=== PATIENT | male | born 1935 | race Caucasian/White ===

== ENCOUNTER → 2016-09-18 | Outpatient (CLI) | payer MEDICARE ==
--- NOTE | 2016-09-20 15:39 | PE ---
Nuclear medicine PET/CT HISTORY: Breast carcinoma, metastatic pleural effusion Patient received 14.7 mCi F-18 FDG intravenously. Delayed scanning performed from the skull base to t he mid thighs. Localization and attenuation correction CT scan was performed. Correlation to prior nuclear medicine PET/CT 22 May 2016. Neck and chest: There is pleural thickening throughout the right hemithorax, corresponding hypermetab olic uptake is present, SUV approximately 3. There is bandlike area of soft tissue density at the rig ht lung base which extends along the right hemidiaphragm anteriorly, SUV 3.5-4.7. The amount of pleur al fluid is reduced as compared to prior exam. Air bronchograms present, volume loss present in the r ight hemithorax. There are again noted coronary artery calcifications. Left lung shows a parenchymal band compatible w ith scarring posteriorly at the lung base. Retrocaval pretracheal lymph node shows SUV 2.6 and is not enlarged by CT size criteria. Abdomen pelvis: No evidence for adrenal mass or retroperitoneal adenopathy. Prostate is enlarged. Uri nary bladder wall thickening likely due to chronic outlet obstruction. Left inguinal hernia contains fat. Extensive diverticular change in the sigmoid colon. Focus within the sigmoid colon shows hyperme tabolic uptake, SUV 6, difficult to exclude an underlying mucosal lesion. IMPRESSION: There is improvement in the right pleural effusion. Uniform pleural thickening with mild increased hypermetabolic uptake is present as described. Sigmoid colon again shows focus of hypermeta bolic uptake.
== END | disposition home or self-care (01) ==
LOC: RADPETMAIN 10:08
PROVIDERS: ATTEND Internal Medicine Hematology & Oncology
DX: C50.929 Malignant neoplasm of unspecified site of unspecified male breast (principal); J90 Pleural effusion, not elsewhere classified; J92.9 Pleural plaque without asbestos
CPT/HCPCS: 78815; A9552

== ENCOUNTER 2016-10-02 02:04 | Inpatient (IN) | payer MEDICARE ==
[2016-10-02] MEDS ORDERED: ALBUTEROL NEBULIZED 2.5 MG/3 ML INHALATION STA (02:31)
[2016-10-02] MEDS ORDERED: IPRATROPIUM 0.5 MG/2.5 ML NEBU INHALATION STA (02:31)
[2016-10-02] MEDS ORDERED: SODIUM CHLORIDE 0.9% 1,000 ML IV STA (02:31)
[2016-10-02] MEDS ORDERED: IBUPROFEN 800 MG TAB PO STA (02:32)
[2016-10-02] MEDS ORDERED: ACETAMINOPHEN TAB 500 MG TAB PO STA (02:32)
--- NOTE | 2016-10-02 02:33 | ED ---
General Adult HPI - General Chief complaint: Chest Pain Stated complaint: CHEST PAIN,SOB Time Seen by Provider: 10/02/16 02:26 Source: patient, family, RN notes reviewed, old records reviewed Mode of arrival: wheelchair Limitations: no limitations - History of Present Illness Initial comments: This is a 81-year-old male here for evaluation significant shortness of breath. Patient has K respiratory lung history including lung CA asthma and heart issues. Patient states that and left-sided chest pain with significant shortness of breath. He is also having fevers, with cough and congestion. Patient has no significant recent hospital admission. - Related Data Home Medications Medication Instructions Recorded Confirmed Letrozole [Femara] 2.5 mg PO DAILY 10/02/16 10/02/16 Morphine Sulfate ER [Ms Contin 30 mg PO Q12HR 10/02/16 10/02/16 30Mg] Allergies Allergy/AdvReac Type Severity Reaction Status Date / Time No Known Allergies Allergy Verified 06/04/16 06:28 Review of Systems ROS Statement: Those systems with pertinent positive or pertinent negative responses have been documented in the HPI. ROS Other: All systems not noted in ROS Statement are negative. Past Medical History Past Medical History: Asthma, Cancer, GERD/Reflux, Hyperlipidemia, Osteoarthritis (OA), Pneumonia, Prostate Disorder Additional Past Medical History / Comment(s): LEFT BREAST CA with surgery and chemotherapy, arrhythmia, kidney stones, BPH, nreve problem in feet. Mesothelioma. History of Any Multi-Drug Resistant Organisms: None Reported Past Surgical History: Adenoidectomy, Breast Surgery, Orthopedic Surgery, Tonsillectomy Additional Past Surgical History / Comment(s): 06/04/16 Right VAT with pleural bx and insertion of pleurx catheter. Other surgical hx: LEFT MASTECTOMY with lymph node excision, LEFT ROTATOR CUFF SX AND FOLLOW UP SX R/T INFECTION. BAUTISTA CATARACTS, colonoscopy with polypectomy. 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 Spouse has dementia. His daughter helps as well. Pt uses no assistive device. He drives. Smoking Status: Former smoker Past Alcohol Use History: Rare Additional Past Alcohol Use History / Comment(s): QUIT SMOKING 25 YRS, FOR 30 YRS, [address] [place]. Past Drug Use History: None Reported - Past Family History Mother Family Medical History: No Reported History Additional Family Medical History / Comment(s): Mother of "old age" at the age of 85yrs. Father Family Medical History: No Reported History Additional Family Medical History / Comment(s): Father lived to be almost 90yrs old. General Exam Limitations: no limitations General appearance: alert, anxious, in distress, cachectic Head exam: Present: atraumatic, normocephalic, normal inspection Eye exam: Present: normal appearance, PERRL, EOMI. Absent: scleral icterus, conjunctival injection, periorbital swelling ENT exam: Present: mucous membranes dry Neck exam: Present: normal inspection. Absent: tenderness, meningismus, lymphadenopathy Respiratory exam: Present: normal lung sounds bilaterally, wheezes, accessory muscle use, decreased breath sounds, prolonged expiratory. Absent: respiratory distress, rales, rhonchi, stridor Cardiovascular Exam: Present: normal rhythm, tachycardia, normal heart sounds. Absent: systolic murmur, diastolic murmur, rubs, gallop, clicks GI/Abdominal exam: Present: soft, normal bowel sounds. Absent: distended, tenderness, guarding, rebound, rigid Extremities exam: Present: normal inspection, full ROM, normal capillary refill. Absent: tenderness, pedal edema, joint swelling, calf tenderness Back exam: Present: normal inspection Neurological exam: Present: alert, oriented X3, CN II-XII intact Psychiatric exam: Present: normal affect, normal mood Skin exam: Present: warm, dry, intact, normal color. Absent: rash Course Vital Signs 10/02/16 10/02/16 10/02/16 02:11 02:47 02:58 Temperature 98.7 F Pulse Rate 109 H 101 H Pulse Rate [ 110 H Right Radial] Respiratory 20 Rate Blood Pressure 129/72 O2 Sat by Pulse 90 L Oximetry 10/02/16 10/02/16 03:17 03:41 Temperature Pulse Rate 98 111 H Pulse Rate [ Right Radial] Respiratory Rate Blood Pressure O2 Sat by Pulse Oximetry - Reevaluation(s) Reevaluation #1: 10/02/16 03:51 Patient symptoms are improved at this point with both fever control and prolonged bradycardia treatment, pain control EKG Findings - EKG Comments: EKG Findings:: EKG shows sinus tachycardia rate 107, pO2 of 6, QRS 72, QTc 413 Medical Decision Making - Medical Decision Making 81 male here for evaluation of shortness of breath cough congestion left-sided pain. Patient with positive new left pleural effusion with pneumonia, right sided pleural effusion continued, patient hypoxic with elevated white count, fever. Patient unit for IV antibiotics and monitoring of hemodynamic status - Lab Data Result diagrams: 10/02/16 02:20 10/02/16 02:20 Lab Results 10/02/16 10/02/16 10/02/16 Range/Units 02:20 02:20 02:20 WBC 23.7 H (3.8-10.6) k/uL RBC 4.35 (4.30-5.90) m/uL Hgb 11.2 L (13.0-17.5) gm/dL Hct 36.2 L (39.0-53.0) % MCV 83.2 (80.0-100.0) fL MCH 25.8 (25.0-35.0) pg MCHC 31.0 (31.0-37.0) g/dL RDW 15.8 H (11.5-15.5) % Plt Count 636 H (150-450) k/uL Neutrophils % 78 % Lymphocytes % 14 % Monocytes % 6 % Eosinophils % 1 % Basophils % 0 % Neutrophils # 18.5 H (1.3-7.7) k/uL Lymphocytes # 3.3 (1.0-4.8) k/uL Monocytes # 1.4 H (0-1.0) k/uL Eosinophils # 0.1 (0-0.7) k/uL Basophils # 0.1 (0-0.2) k/uL Hypochromasia Moderate PT 10.7 (9.0-12.0) sec INR 1.1 (<1.1) APTT 27.9 (22.0-30.0) sec Sodium 136 L (137-145) mmol/L Potassium 4.8 (3.5-5.1) mmol/L Chloride 96 L (98-107) mmol/L Carbon Dioxide 26 (22-30) mmol/L Anion Gap 14 mmol/L BUN 21 H (9-20) mg/dL Creatinine 0.80 (0.66-1.25) mg/dL Est GFR (MDRD) Af Amer >60 (>60 ml/min/1.73 sqM) Est GFR (MDRD) Non-Af >60 (>60 ml/min/1.73 sqM) Glucose 110 H (74-99) mg/dL Calcium 9.3 (8.4-10.2) mg/dL Magnesium 1.8 (1.6-2.3) mg/dL Total Bilirubin 0.5 (0.2-1.3) mg/dL AST 34 (17-59) U/L ALT 36 (21-72) U/L Alkaline Phosphatase 131 H (38-126) U/L Total Protein 6.6 (6.3-8.2) g/dL Albumin 3.2 L (3.5-5.0) g/dL - Radiology Data Radiology results: report reviewed (Chest x-ray is positive for left-sided pneumonia, bilateral pleural effusion), image reviewed Critical Care Time Critical Care Time: Yes Total Critical Care Time: 31 Disposition Clinical Impression: Carcinoma of left male breast, Pleural effusion on right, Nosocomial pneumonia , Fever, Sepsis Disposition: ADMITTED IP TO THIS [facility] Condition: Serious Referrals: Jayson Mendoza MD [Primary Care Provider] - 1-2 days
[2016-10-02] MEDS ORDERED: LEVOFLOXACIN 750MG-D5W PMX 750 MG in DEXTROSE/WATER 1 150ML.BAG IVPB STA (02:43)
[2016-10-02] MEDS ORDERED: PIPERACILLIN-TAZOBACTAM 3.375 GM in DEXTROSE/WATER 1 50ML.BAG IVPB STA (02:43)
--- NOTE | 2016-10-02 02:54 | XR ---
EXAM: Single view of the chest. INDICATION: 81-year-old male with chest pain. COMPARISON: Chest radiograph 08/03/2016. FINDINGS: Single upright AP portable view of the chest shows stable cardiomegaly. Aorta is tortuous and partially calcified. Right-sided pleural effusion with adjacent atelectasis consolidation is again demonstrated. Left costophrenic angle is not well-visualized secondary to enlarged cardiac silhouette, although interval development of a left pleural effusion with adjacent atelectasis is suspected. No acute osseous abnormality. Upper abdomen is unremarkable. IMPRESSION: 1. Stable cardiomegaly. 2. Stable right pleural effusion with adjacent atelectasis or consolidation. 3. Suspect interval development of a small left pleural effusion with adjacent atelectasis.
[2016-10-02] MEDS: SODIUM CHLORIDE 0.9% 1,000 ML IV STA (02:56)
[2016-10-02 02:58] LABS: Basophils # (A) 0.1 k/uL (0-0.2); Basophils % (A) 0 %; CH 25.4; CHCM 30.6; Eosinophils # (A) 0.1 k/uL (0-0.7); Eosinophils % (A) 1 %; HCT 36.2 % (39.0-53.0); HDW 2.52; HGB 11.2 gm/dL (13.0-17.5); Hypochromasia Moderate; Luc # (Auto) 0.38; Luc % (Auto) 2; Lymphocytes # (A) 3.3 k/uL (1.0-4.8); Lymphocytes % (A) 14 %; MCH 25.8 pg (25.0-35.0); MCV 83.2 fL (80.0-100.0); Mean Platelet Volume 7.1; Monocytes # (A) 1.4 k/uL (0-1.0); Monocytes % (A) 6 %; Neutrophils # (A) 18.5 k/uL (1.3-7.7); Neutrophils % (A) 78 %; RBC 4.35 m/uL (4.30-5.90); RDW 15.8 % (11.5-15.5); WBC 23.7 k/uL (3.8-10.6); WBC (Perox) 23.47
[2016-10-02 03:16] LABS: ALT 36 U/L (21-72); AST 34 U/L (17-59); Alkaline Phosphatase 131 U/L (38-126); Anion Gap 14 mmol/L; Blood Urea Nitrogen 21 mg/dL (9-20); Calcium 9.3 mg/dL (8.4-10.2); Carbon Dioxide 26 mmol/L (22-30); Chloride 96 mmol/L (98-107); Glucose 110 mg/dL (74-99); Magnesium 1.8 mg/dL (1.6-2.3); Non-African American GFR(MDRD) >60 (>60 ml/min/1.73 sqM); Potassium 4.8 mmol/L (3.5-5.1); Sodium 136 mmol/L (137-145); Total Bilirubin 0.5 mg/dL (0.2-1.3); Total Protein 6.6 g/dL (6.3-8.2)
[2016-10-02 03:25] LABS: Creatine Kinase 27 U/L (55-170)
[2016-10-02 03:26] LABS: INR 1.1 (<1.1); Partial Thromboplastin Time 27.9 sec (22.0-30.0); Prothrombin Time 10.7 sec (9.0-12.0)
[2016-10-02 03:39] LABS: Creatine Kinase MB 0.4 ng/mL (0.0-2.4); Troponin I <0.012 ng/mL (0.000-0.034)
[2016-10-02] MEDS ORDERED: PNEUMONIA PROTOCOL UTILIZED 1 EACH MISC PO PRN (03:48)
[2016-10-02 05:20] VITALS: BMI 20.7
[2016-10-02] MEDS: SODIUM CHLORIDE 0.9% 1,000 ML IV SCH ×3 (05:28→23:37)
[2016-10-02] MEDS: IPRATROPIUM-ALBUTEROL 3 ML NEB INHALATION SCH ×4 (08:05→21:23)
[2016-10-02] MEDS: MORPHINE SULFATE ER 30 MG TABLET PO SCH ×2 (08:37→21:09)
[2016-10-02] MEDS: ENOXAPARIN 40 MG/0.4 ML SYRINGE SQ SCH (08:38)
[2016-10-02] MEDS: HYDROcodone/APAP 5-325MG 1 EACH TAB PO PRN (12:00)
[2016-10-02] MEDS ORDERED: RX INFO: IV CONTRAST WAS GIVEN 1 EACH MISC MISCELLANE PRN (12:01)
--- NOTE | 2016-10-02 13:26 | CT ---
EXAMINATION TYPE: CT chest angio for PE DATE OF EXAM: 10/02/2016 12:56 PM COMPARISON: 05/18/2016 HISTORY: 81-year-old male sob, r/o PE TECHNIQUE: Contiguous axial scanning of the chest performed with IV Contrast, patient injected with 7 0 mL of Omnipaque 300. Coronal/sagittal MIP reconstructions performed. CT DLP: 356.5 mGycm Automated exposure control for dose reduction was used. FINDINGS: The heart is upper limits of normal in size without pericardial effusion. Coronary vessel calcificati ons are present and are remarkable for coronary artery disease. Ascending aorta ectatic and 3.7 cm with conventional arch vessel branching anatomy. Scattered small mediastinal lymph nodes. Satisfactory opacification of the pulmonary arterial system without evidence for pulmonary embolus. There are small bilateral pleural effusions. There is suggestion of pleural-based thickening and slig ht irregularity within the right mid and lower lung. There are patchy bibasilar opacities in part rep resenting atelectasis. Mild centrilobular emphysema is noted. Some septal lines are noted in the lowe r lungs with a peribronchial thickening. Small amount of debris is seen within the proximal left main stem bronchus, dependently. Visualized upper abdomen shows no gross abnormality. Endplate spondylosis mid to lower thoracic spine. No osseous destructive process seen. IMPRESSION: 1. NO EVIDENCE FOR PULMONARY EMBOLUS. 2. SMALL BILATERAL PLEURAL EFFUSIONS, NEW ON THE LEFT COMPARED TO APRIL. POSSIBLE MALIGNANT EFF USION ON THE RIGHT GIVEN SOMEWHAT IRREGULAR PLEURAL-BASED THICKENING IN THE RIGHT MID AND LOWER LUNG. 3. BIBASILAR AREAS OF SUBSEGMENTAL AND SEGMENTAL ATELECTASIS. UNDERLYING PNEUMONIA SHOULD BE EXCLUDED ON A CLINICAL BASIS. 4. GIVEN SOME SEPTAL LINES AND THE EFFUSIONS, CORRELATE TO EXCLUDE FLUID OVERLOAD AND PULMONARY VASCU LAR CONGESTION.
--- NOTE | 2016-10-02 13:27 | P.CNPUL ---
History of Present Illness Consult date: 10/02/16 Reason for consult: dyspnea, chest pain History of present illness: A pleasant 81-year-old male patient with a malignant right-sided pleural effusion, post VATS and surgical biopsy of the right pleura showing metastatic breast cancer and is also a. Note that the patient has history of a left-sided breast cancer for which she has undergone mastectomy 2013 with subsequent chemotherapy that he completed in September 2014. He has been on hormonal treatment since then. Subsequently the patient developed a right-sided pleural effusion and initial thoracentesis yielded no diagnosis and ultimately the patient required a VATS for ultimate and definite diagnosis. The patient had a PET scan that was done in August 2016 and it showed pleural thickening throughout the right hemithorax corresponding with hypermetabolic uptake in an SUV of 3. There was bandlike area of soft tissue density at the right lung base which extended along the right hemidiaphragm anteriorly and the amount of fluid in the right lung has reduced. There was some limited activity in the left lung posteriorly along with some retrocaval pretracheal lymph nodes with an SUV of 2.6. Patient came in yesterday to the burst department because of worsening shortness of breath and acute left pleuritic chest pain. No cough or sputum production. No reported fever or chills. Chest x-ray showed development of bilateral pleural effusions and furthermore a CT angios the chest was done that showed no evidence of pulmonary embolism. There was development of a new left- sided pleural effusion with compressive atelectasis of the left lung base. The amount of fluid is still small. Currently, the patient is on a combination of Levaquin and Zosyn as broad-spectrum antibiotic coverage for any potential pneumonia. The patient has leukocytosis with a white cell count of 23.7. Rest of the electrolytes all within normal limits. Review of Systems Review of system was done and the positive findings are almost above in history of present illness Past Medical History Past Medical History: Asthma, Cancer, GERD/Reflux, Osteoarthritis (OA), Pneumonia, Prostate Disorder Additional Past Medical History / Comment(s): Left breast cancer which is probably metastatic at this point, mesothelioma, malignant left-sided pleural effusion status post insertion and removal of Pleurx catheter, nephrolithiasis, BPH, hyperlipidemia, impaired hearing, osteoarthritis History of Any Multi-Drug Resistant Organisms: None Reported Past Surgical History: Adenoidectomy, Breast Surgery, Orthopedic Surgery, Tonsillectomy Additional Past Surgical History / Comment(s): 06/04/16 Right VAT with pleural bx and insertion of pleurx catheter. Other surgical hx: LEFT MASTECTOMY with lymph node excision, LEFT ROTATOR CUFF SX AND FOLLOW UP SX R/T INFECTION. BAUTISTA CATARACTS, colonoscopy with polypectomy. Past Anesthesia/Blood Transfusion Reactions: No Reported Reaction Past Psychological History: No Psychological Hx Reported Additional Psychological History / Comment(s): Pt resides with his daughter. Spouse has dementia. Pt uses cane. Smoking Status: Former smoker Past Alcohol Use History: Rare Additional Past Alcohol Use History / Comment(s): QUIT SMOKING 25 YRS, FOR 30 YRS, 10 [employer] [place]. Past Drug Use History: None Reported - Past Family History Mother Family Medical History: No Reported History Additional Family Medical History / Comment(s): Mother of "old age" at the age of 85yrs. Father Family Medical History: No Reported History Additional Family Medical History / Comment(s): Father lived to be almost 90yrs old. Medications and Allergies Home Medications Medication Instructions Recorded Confirmed Type Aspirin EC [Ecotrin Low Dose] 81 mg PO DAILY PRN 10/02/16 10/02/16 History Letrozole [Femara] 2.5 mg PO DAILY 10/02/16 10/02/16 History Morphine Sulfate [Morphine Sulfate 30 mg PO Q12H 10/02/16 10/02/16 History ER] Allergies Allergy/AdvReac Type Severity Reaction Status Date / Time No Known Allergies Allergy Verified 10/02/16 12:12 Physical Exam Vitals: Vital Signs Temp Pulse Pulse Resp BP BP Pulse Ox 10/02/16 08:05 100 10/02/16 07:00 97.2 F L 99 20 112/67 94 L 10/02/16 04:16 102 H 20 100/56 98 Intake and Output 10/01/16 10/02/16 10/02/16 22:59 06:59 14:59 Intake Total 200 Balance 200 Intake: Intake, IV Titration 200 Amount Sodium Chloride 0.9% 1, 200 000 ml @ 100 mls/hr IV . Q10H GRETEL Rx#:[id number] Other: Weight 65.771 kg The patient appeared well nourished and normally developed. Vital signs as documented. Head exam is unremarkable. No scleral icterus or corneal arcus noted. Neck is without jugular venous distension, thyromegaly, or carotid bruits. Carotid upstrokes are brisk bilaterally. Breath sounds are diminished in lung bases bilaterally. No wheezes. No rhonchi. No crackles.. Cardiac exam reveals the PMI to be normally sized and situated. Rhythm is regular. First and second heart sounds normal. No murmurs, rubs or gallops. Abdominal exam reveals normal bowel sounds, no masses, no organomegaly and no aortic enlargement. Extremities are nonedematous and both femoral and pedal pulses are normal. Results - Laboratory Findings CBC and BMP: 10/02/16 02:20 10/02/16 02:20 PT/INR, D-dimer PT 10.7 sec (9.0-12.0) 10/02/16 02:20 INR 1.1 (<1.1) 10/02/16 02:20 - Diagnostic Findings Chest x-ray: image reviewed CT scan - chest: image reviewed Assessment and Plan Plan: Assessment 1 acute pleuritic left-sided chest pain. No evidence of pulmonary embolism. There is development of a new left-sided pleural effusion that was not present on a PET scan that was done and August 2016. This is a new findings. Nevertheless, going back to the PET scan, there was some increased metabolic activity along the pleural surface although the activity and optic was quite low. This could be potentially a pneumonia with parapneumonic effusion. Malignant pleural effusion cannot be completely excluded 2 malignant pleural effusion with thoracoscopic lung biopsy indicating metastatic breast and possibly mesothelioma 3 breast cancer 4 leukocytosis 5 hyperlipidemia 6 osteoarthritis 7 BPH 8 nephrolithiasis Plan Continue covering the patient with broad-spectrum antibiotics. Provide the patient a combination of Zosyn and Levaquin. Provide the patient adequate pain control. We'll monitor the size of the pleural effusion and consider a diagnostic thoracentesis if the pleural fluid increases in size and becomes amenable to thoracentesis. There is a suspicion that this may be a parapneumonic effusion although malignancy cannot be completely excluded.
[2016-10-02] MEDS: HYDROmorphone 1 MG/ML 1 ML SYRINGE IVP PRN ×2 (15:34→22:01)
[2016-10-02] MEDS: PIPERACILLIN-TAZOBACTAM 3.375 GM in DEXTROSE/WATER 1 50ML.BAG IVPB SCH ×2 (15:42→23:36)
[2016-10-02] MEDS ORDERED: ASPIRIN 81 MG CHEW PO PRN (19:57)
[2016-10-02] MEDS ORDERED: TEMAZEPAM 15 MG CAP PO PRN (19:58)
[2016-10-03] MEDS: HYDROmorphone 1 MG/ML 1 ML SYRINGE IVP PRN ×4 (04:11→22:09)
[2016-10-03] MEDS: LEVOFLOXACIN 750MG-D5W PMX 750 MG in DEXTROSE/WATER 1 150ML.BAG IVPB SCH (05:19)
[2016-10-03 07:21] LABS: Anisocytosis Slight; Basophils % (A) 0 %; CH 25.5; CHCM 29.2; Eosinophils # (A) 0.2 k/uL (0-0.7); Eosinophils % (A) 1 %; HDW 2.48; HGB 10.7 gm/dL (13.0-17.5); Hypochromasia Marked; Luc # (Auto) 0.35; Luc % (Auto) 2; Lymphocytes # (A) 1.7 k/uL (1.0-4.8); Lymphocytes % (A) 8 %; MCH 25.3 pg (25.0-35.0); MCHC 28.8 g/dL (31.0-37.0); MCV 87.8 fL (80.0-100.0); Mean Platelet Volume 6.7; Monocytes # (A) 1.4 k/uL (0-1.0); Monocytes % (A) 7 %; Neutrophils # (A) 16.4 k/uL (1.3-7.7); Neutrophils % (A) 82 %; RBC 4.22 m/uL (4.30-5.90); RDW 16.2 % (11.5-15.5); WBC (Perox) 19.57
--- NOTE | 2016-10-03 07:29 | XR ---
EXAMINATION TYPE: XR chest 2V DATE OF EXAM: 10/03/2016 6:39 AM COMPARISON: 10/02/2016 HISTORY: 81-year-old male follow-up pneumonia TECHNIQUE: Frontal and lateral views FINDINGS: Heart remains borderline to mildly enlarged. Elongation of the thoracic aorta. Mild interstitial prom inence which may be slightly increased from prior. Continued small right and increasing [id number] rate left pleural effusions with adjacent atelectasis or consolidation. IMPRESSION: 1. Continued small right and increasing [id number] left pleural effusions with adjacent atelec tasis and/or consolidation. 2. Interstitial densities are slightly increased; correlate to exclude mild CHF.
[2016-10-03 07:43] LABS: Anion Gap 10 mmol/L; Blood Urea Nitrogen 17 mg/dL (9-20); Calcium 9.2 mg/dL (8.4-10.2); Carbon Dioxide 23 mmol/L (22-30); Chloride 103 mmol/L (98-107); Glucose 106 mg/dL (74-99); Non-African American GFR(MDRD) >60 (>60 ml/min/1.73 sqM); Sodium 136 mmol/L (137-145)
[2016-10-03] MEDS: HYDROcodone/APAP 5-325MG 1 EACH TAB PO PRN (07:49)
[2016-10-03] MEDS: PIPERACILLIN-TAZOBACTAM 3.375 GM in DEXTROSE/WATER 1 50ML.BAG IVPB SCH ×3 (07:58→23:47)
[2016-10-03] MEDS: ENOXAPARIN 40 MG/0.4 ML SYRINGE SQ SCH (07:59)
[2016-10-03] MEDS: LETROZOLE 2.5 MG TAB PO SCH (07:59)
[2016-10-03] MEDS: MORPHINE SULFATE ER 30 MG TABLET PO SCH ×2 (08:06→20:53)
[2016-10-03] MEDS: IPRATROPIUM-ALBUTEROL 3 ML NEB INHALATION SCH ×4 (09:02→20:31)
--- NOTE | 2016-10-03 09:48 | HP ---
DATE OF ADMISSION: CHIEF COMPLAINT: Shortness of breath. HISTORY OF PRESENT ILLNESS: This 81-year-old gentleman with a past medical history of multiple medical problems including left-sided breast cancer as well as right-sided pleural effusion, VATS procedure, possible right-sided mesothelioma, history of gastroesophageal reflux disease, degenerative joint disease, prostate disorder, adenoidectomy being followed by Dr. Mendoza in the outpatient setting was admitted with significant shortness of breath and chest pain to [facility]. The patient underwent chest x-ray on admission. The chest x-ray showed stable cardiomegaly, stable right pleural effusion with development of small left pleural effusion. A chest CTA was done to rule out the possibility of pulmonary embolism which showed no evidence of pulmonary embolism, but small bilateral pleural effusions and malignant pleural effusion is suspected and bibasilar subsegmental atelectasis and possibly pneumonia also suspected. Patient admitted for further evaluation and treatment. There is no history of fever, rigors. No history of headache, loss of consciousness, seizures. PAST MEDICAL HISTORY: History of breast cancer, history of mesothelioma, history of asthma, DJD, pneumonia, prostate disorder, adenoidectomy, breast surgery. Medications prior to admission: 1. Morphine sulfate 30 mg b.i.d. 2. Femara 2.5 mg daily. 3. Ecotrin 81 mg daily p.r.n. ALLERGIES: None. FAMILY HISTORY: No history of any heart disease or stroke in the family. SOCIAL HISTORY: Previous history of smoking, no history of current smoking or alcohol intake. REVIEW OF SYSTEMS: ENT: Diminishing hearing. Diminished vision. CARDIOVASCULAR: No angina. RESPIRATORY: As mentioned earlier. GI: As mentioned earlier. : No dysuria. NERVOUS SYSTEM: No numbness, weakness. ALLERGY/IMMUNOLOGY: No asthma or hayfever. MUSCULOSKELETAL: As mentioned earlier. HEMATOLOGY: No history of anemia. ENDOCRINE: No history of diabetes or hypothyroidism. CONSTITUTIONAL: As mentioned earlier. DERMATOLOGY: Negative. RHEUMATOLOGY: Negative. PSYCHIATRY: As mentioned earlier. PHYSICAL EXAMINATION: Patient is alert and oriented x3. Pulse 84, blood pressure 109/66, respirations 18, temperature 97.4, pulse ox 90% on 2-L. HEENT: Conjunctivae normal. NECK: No jugular venous distention. CARDIOVASCULAR: S1 and S2, muffled. RESPIRATORY: Breath sounds diminished at the bases. A few scattered rhonchi and crackles. ABDOMEN: Soft, nontender. LEGS: No edema, no swelling. NERVOUS SYSTEM: Higher function as mentioned. Moves all four limbs. No focal motor deficits. LYMPHATIC: No lymphadenopathy in the neck, axillae or groin. SKIN: No ulcer, rash or bleeding. LABS: WBC 23.2, hemoglobin 11.2, sodium 136. ASSESSMENT: 1. Possible acute left lower pneumonia with pleurisy with severe left-sided chest pain with a left pleural effusion. 2. Right pleural effusion possibly mesothelioma status post video-assisted thoracoscopic procedure and pleurodesis. 3. History of left breast cancer in 2014. 4. History of gastroesophageal reflux disease. 5. Hyperlipidemia. 6. History of recent weight loss. 7. History of gastroesophageal reflux disease. 8. History of asthma. 9. History of adenoidectomy. 10. History of degenerative joint disease. 11. Remote history nicotine dependence. 12. Increased WBC. 13. Anemia, normocytic of chronic disease. 14. Increased platelets. 15. Hyponatremia, possibly hypovolemic. 16. Increased random blood sugar. 17. Increased alkaline phosphatase. 18. Hypoalbuminemia with mild to moderate protein calorie malnutrition. 19. FULL CODE. RECOMMENDATIONS AND DISCUSSION: In this 81-year-old gentleman who presented multiple complex medical issues, will monitor the patient closely. Continue the current medications, continue symptomatic treatment and empiric antibiotics, bronchodilators, pain medications. Otherwise broad-spectrum IV antibiotics initiated. Will obtain the cultures. Closely follow with Dr. Martin. The prognosis is guarded because of multiple complex medical issues. Further recommendations to follow. Copy of dictation forwarded to Dr. Mendoza, who is the primary physician.
[2016-10-03] MEDS ORDERED: HYDROmorphone 1 MG/ML 1 ML SYRINGE IVP PRN (11:10)
--- NOTE | 2016-10-03 13:12 | P.CONS ---
History of Present Illness - Reason for Consult Consult date: 10/03/16 known, metastatic breast cancer Requesting physician: Kaden Leija - Chief Complaint pleuritic chest pain - History of Present Illness Pt is well known to Dr. 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 Full details of his treatment history are not available to me at this time but that will be reviewed and communicated. In Apr 2016 pt had thoracentesis that was non diagnostic, in May 2016 he had PET scan showing activity in the left pleura, VATS procedure revealed ER + metastatic breast cancer and mesothelioma, concurrent malignancy. Current treatment for hormone estrogen receptor positive breast cancer is oral femara, no treatment for the mesothelioma, per pt daughter he is not interested in chemotherapy. Pt was experiencing progressive SOB and pleuritic chest pain, the pain starts in the left l0wer chest and radiates anteriorly, 8-9/10, sharp, currently not well controlled, no cough or sputum production at this time, he has poor appetite, denies painful swallowing, no substernal chest pain, abd is slightly distended, he states no BM for about 3 days. He is tired all the time and weak. Review of Systems All systems: negative Constitutional: Reports as per HPI Past Medical History Past Medical History: Asthma, Cancer, GERD/Reflux, Osteoarthritis (OA), Pneumonia, Prostate Disorder Additional Past Medical History / Comment(s): Left breast cancer which is probably metastatic at this point, mesothelioma, malignant left-sided pleural effusion status post insertion and removal of Pleurx catheter, nephrolithiasis, BPH, hyperlipidemia, impaired hearing, osteoarthritis History of Any Multi-Drug Resistant Organisms: None Reported Past Surgical History: Adenoidectomy, Breast Surgery, Orthopedic Surgery, Tonsillectomy Additional Past Surgical History / Comment(s): 06/04/16 Right VAT with pleural bx and insertion of pleurx catheter. Other surgical hx: LEFT MASTECTOMY with lymph node excision, LEFT ROTATOR CUFF SX AND FOLLOW UP SX R/T INFECTION. BAUTISTA CATARACTS, colonoscopy with polypectomy. Past Anesthesia/Blood Transfusion Reactions: No Reported Reaction Past Psychological History: No Psychological Hx Reported Additional Psychological History / Comment(s): Pt resides with his daughter. Spouse has dementia. Pt uses cane. Smoking Status: Former smoker Past Alcohol Use History: Rare Additional Past Alcohol Use History / Comment(s): QUIT SMOKING 25 YRS, FOR 30 YRS, 10 [employer] [address]. Past Drug Use History: None Reported - Past Family History Mother Family Medical History: No Reported History Additional Family Medical History / Comment(s): Mother of "old age" at the age of 85yrs. Father Family Medical History: No Reported History Additional Family Medical History / Comment(s): Father lived to be almost 90yrs old. Medications and Allergies Home Medications Medication Instructions Recorded Confirmed Type Aspirin EC [Ecotrin Low Dose] 81 mg PO DAILY PRN 10/02/16 10/02/16 History Letrozole [Femara] 2.5 mg PO DAILY 10/02/16 10/02/16 History Morphine Sulfate [Morphine Sulfate 30 mg PO Q12H 10/02/16 10/02/16 History ER] Allergies Allergy/AdvReac Type Severity Reaction Status Date / Time No Known Allergies Allergy Verified 10/02/16 12:12 Physical Exam Vitals: Vital Signs Temp Pulse Pulse Resp BP Pulse Ox 10/03/16 08:00 112 H 18 10/03/16 07:00 98.2 F 112 H 18 127/67 96 10/03/16 03:48 97 10/02/16 22:35 97.2 F L 102 H 18 106/64 97 10/02/16 21:36 88 10/02/16 21:24 88 10/02/16 17:05 96 10/02/16 16:50 98 10/02/16 15:00 97.4 F L 84 18 109/63 99 Intake and Output 10/02/16 10/03/16 10/03/16 22:59 06:59 14:59 Intake Total 240 750 Output Total 120 Balance 240 630 Intake: Intake, IV Titration 750 Amount Piperacillin-Tazobactam 3 50 .375 gm In Dextrose/Water 1 50ml.bag @ 12.5 mls/hr IVPB Q8HR [facility] Rx#: [id number] Sodium Chloride 0.9% 1, 700 000 ml @ 100 mls/hr IV . Q10H [facility] Rx#:[id number] Oral 240 Output: Urine 120 Other: Voiding Method Urinal Urinal # Voids 1 - Constitutional General appearance: cooperative, mild distress, thin - EENT Eyes: anicteric sclerae, normal appearance ENT: normal oropharynx - Neck Neck: no lymphadenopathy - Respiratory Respiratory: right: rales, left: diminished, bilateral: prolonged expiration - Cardiovascular Heart sounds: normal: S1, S2 leg Peripheral Edema: bilateral: None - Gastrointestinal General gastrointestinal: decreased bowel sounds, distended, soft - Integumentary Integumentary: pale - Neurologic Neurologic: CNII-XII intact - Musculoskeletal Musculoskeletal: generalized weakness - Psychiatric Psychiatric: A&O x's 3, appropriate affect, intact judgment & insight Results CBC & Chem 7: 10/03/16 06:46 10/03/16 06:46 Labs: Abnormal Lab Results - Last 24 Hours (Table) 10/03/16 10/03/16 Range/Units 06:46 06:46 WBC 20.0 H (3.8-10.6) k/uL RBC 4.22 L (4.30-5.90) m/uL Hgb 10.7 L (13.0-17.5) gm/dL Hct 37.0 L (39.0-53.0) % MCHC 28.8 L (31.0-37.0) g/dL RDW 16.2 H (11.5-15.5) % Plt Count 623 H (150-450) k/uL Neutrophils # 16.4 H (1.3-7.7) k/uL Monocytes # 1.4 H (0-1.0) k/uL Sodium 136 L (137-145) mmol/L Glucose 106 H (74-99) mg/dL Microbiology - Last 24 Hours (Table) 10/02/16 21:28 Sputum Culture - Preliminary Sputum Chest x-ray: report reviewed CT scan - chest: report reviewed Assessment and Plan (1) Mesothelioma of left lung Narrative/Plan: Case reviewed with Pulmonary, previous PET and CTA reports reviewed. The differential include infectious process vs malignancy. Plan is to treat with antibiotics and monitor pt progress, if effusion progresses Dr. Martin may plan diagnostic and therapeutic thoracentesis. At this time pt daughter stated pt has no interest in treating mesothelioma. We will continue to follow pt progress while inpatient. Status: Acute (2) Carcinoma of left male breast Narrative/Plan: Cont on oral femara. Status: Chronic Plan: Pt is on DVT and GI prophylaxis Stool softeners ordered, laxative PRN Pain meds were adjusted, discussed with nursing plan for titration
[2016-10-03] MEDS: BISACODYL 5 MG TABLET.DR PO STA ×2 (14:07→14:09)
[2016-10-03] MEDS: DOCUSATE 100 MG CAP PO SCH ×2 (14:07→20:54)
[2016-10-03] MEDS: SODIUM CHLORIDE 0.9% 1,000 ML IV SCH (14:12)
[2016-10-03] MEDS ORDERED: FUROSEMIDE 10 MG/ML 4 ML VIAL IV STA (15:53)
--- NOTE | 2016-10-03 15:53 | P.PN ---
Subjective A pleasant 81-year-old male patient with a malignant right-sided pleural effusion, post VATS and surgical biopsy of the right pleura showing metastatic breast cancer and is also a. Note that the patient has history of a left-sided breast cancer for which she has undergone mastectomy 2013 with subsequent chemotherapy that he completed in September 2014. He has been on hormonal treatment since then. Subsequently the patient developed a right-sided pleural effusion and initial thoracentesis yielded no diagnosis and ultimately the patient required a VATS for ultimate and definite diagnosis. The patient had a PET scan that was done in August 2016 and it showed pleural thickening throughout the right hemithorax corresponding with hypermetabolic uptake in an SUV of 3. There was bandlike area of soft tissue density at the right lung base which extended along the right hemidiaphragm anteriorly and the amount of fluid in the right lung has reduced. There was some limited activity in the left lung posteriorly along with some retrocaval pretracheal lymph nodes with an SUV of 2.6. Patient came in yesterday to the burst department because of worsening shortness of breath and acute left pleuritic chest pain. No cough or sputum production. No reported fever or chills. Chest x-ray showed development of bilateral pleural effusions and furthermore a CT angios the chest was done that showed no evidence of pulmonary embolism. There was development of a new left- sided pleural effusion with compressive atelectasis of the left lung base. The amount of fluid is still small. Currently, the patient is on a combination of Levaquin and Zosyn as broad-spectrum antibiotic coverage for any potential pneumonia. The patient has leukocytosis with a white cell count of 23.7. Rest of the electrolytes all within normal limits. On 10/03/2016, Mike remains to be complaining of left-sided pleuritic chest wall pain. His pain is worse with inhalation and deep breathing and cough and. He remains afebrile. His lites tachycardic. He is hemodynamically stable and his pulse ox is around 94% weeks of oxygen nasal cannula. Please refer to discussions was done earlier. As mentioned, the patient had a recent PET scan that showed some activity within the left pleural space however the lung space and the parenchyma was within normal limits. It's much likely that this is either a malignant process within the left chest/lower space. Also possible that we are dealing with a left lower lobe pneumonia with parapneumonic effusion which is somewhat loculated. On the right, the patient has a malignant pleural effusion with metastatic breast cancer with an underlying malignant mesothelioma. His white cell count remains elevated at 20.0. Objective - Vital Signs Vital signs: Vital Signs Temp 97.5 F L 10/03/16 15:00 Pulse 110 H 10/03/16 15:00 Resp 18 10/03/16 15:00 BP 129/70 10/03/16 15:00 Pulse Ox 94 L 10/03/16 15:00 Intake & Output 10/02/16 10/03/16 10/03/16 18:59 06:59 18:59 Intake Total 990 240 Output Total 240 120 120 Balance -240 870 120 Weight 65.771 kg Intake: Intake, IV Titration 750 Amount Piperacillin-Tazobactam 3 50 .375 gm In Dextrose/Water 1 50ml.bag @ 12.5 mls/hr IVPB Q8HR [facility] Rx#: [id number] Sodium Chloride 0.9% 1, 700 000 ml @ 100 mls/hr IV . Q10H [facility] Rx#:[id number] Oral 240 240 Output: Urine 240 120 120 Other: Voiding Method Urinal Urinal # Voids 1 1 2 - Exam The patient appeared well nourished and normally developed. Vital signs as documented. Head exam is unremarkable. No scleral icterus or corneal arcus noted. Neck is without jugular venous distension, thyromegaly, or carotid bruits. Carotid upstrokes are brisk bilaterally. Breath sounds are diminished in lung bases bilaterally. No wheezes. No rhonchi. No crackles.. Cardiac exam reveals the PMI to be normally sized and situated. Rhythm is regular. First and second heart sounds normal. No murmurs, rubs or gallops. Abdominal exam reveals normal bowel sounds, no masses, no organomegaly and no aortic enlargement. Extremities are nonedematous and both femoral and pedal pulses are normal. - Labs CBC & Chem 7: 10/03/16 06:46 10/03/16 06:46 Labs: Abnormal Lab Results - Last 24 Hours (Table) 10/03/16 10/03/16 Range/Units 06:46 06:46 WBC 20.0 H (3.8-10.6) k/uL RBC 4.22 L (4.30-5.90) m/uL Hgb 10.7 L (13.0-17.5) gm/dL Hct 37.0 L (39.0-53.0) % MCHC 28.8 L (31.0-37.0) g/dL RDW 16.2 H (11.5-15.5) % Plt Count 623 H (150-450) k/uL Neutrophils # 16.4 H (1.3-7.7) k/uL Monocytes # 1.4 H (0-1.0) k/uL Sodium 136 L (137-145) mmol/L Glucose 106 H (74-99) mg/dL Microbiology - Last 24 Hours (Table) 10/02/16 21:28 Gram Stain - Preliminary Sputum Sputum Culture - Preliminary Assessment and Plan Plan: Assessment 1 acute pleuritic left-sided chest pain. No evidence of pulmonary embolism. There is development of a new left-sided pleural effusion that was not present on a PET scan that was done and August 2016. This is a new findings. Nevertheless, going back to the PET scan, there was some increased metabolic activity along the pleural surface although the activity and optic was quite low. This could be potentially a pneumonia with parapneumonic effusion. Malignant pleural effusion cannot be completely excluded On 10/03/2016, chest x-ray is not showing any major change in the patient continues to have pleuritic left-sided chest pain. Differential diagnosis remains the same. Possible parapneumonic versus malignant effusion knowing that the patient has had malignancy within the pleural space as documented on the right side of the lung. 2 malignant pleural effusion with thoracoscopic lung biopsy indicating metastatic breast and possibly mesothelioma 3 breast cancer 4 leukocytosis 5 hyperlipidemia 6 osteoarthritis 7 BPH 8 nephrolithiasis Plan Continue covering the patient with broad-spectrum antibiotics. Provide the patient a combination of Zosyn and Levaquin. Provide the patient adequate pain control. We'll monitor the size of the pleural effusion and consider a diagnostic thoracentesis if the pleural fluid increases in size and becomes amenable to thoracentesis. There is a suspicion that this may be a parapneumonic effusion although malignancy cannot be completely excluded. A lengthy discussion with the patient is daughter. I showed him and his daughter the PET scan findings which showed some abnormal uptake within the left lung that was not quite intense however it was abnormal. As such is possible that the findings on the left lung is malignant. A parapneumonic effusion cannot be completely excluded. The patient's white cell count is still elevated. Continue same antibiotic coverage. Repeat chest x-ray in the morning. We'll continue to follow. Long-term prognosis poor baseline above- mentioned comorbidities.
[2016-10-03] MEDS: SODIUM CHLORIDE 0.9% 1,000 ML IV STA (16:48)
[2016-10-04] MEDS: HYDROmorphone 1 MG/ML 1 ML SYRINGE IVP PRN ×6 (05:21→23:13)
[2016-10-04] MEDS: LEVOFLOXACIN 750MG-D5W PMX 750 MG in DEXTROSE/WATER 1 150ML.BAG IVPB SCH (05:36)
[2016-10-04] MEDS: IPRATROPIUM-ALBUTEROL 3 ML NEB INHALATION SCH ×4 (07:08→19:35)
[2016-10-04 08:02] LABS: Basophils % (A) 0 %; CH 24.9; CHCM 29.5; Eosinophils # (A) 0.1 k/uL (0-0.7); Eosinophils % (A) 1 %; HCT 32.7 % (39.0-53.0); HDW 2.59; HGB 10.1 gm/dL (13.0-17.5); Hypochromasia Marked; Luc # (Auto) 0.32; Luc % (Auto) 2; Lymphocytes # (A) 2.3 k/uL (1.0-4.8); Lymphocytes % (A) 16 %; MCHC 30.7 g/dL (31.0-37.0); MCV 84.7 fL (80.0-100.0); Mean Platelet Volume 6.6; Monocytes # (A) 1.1 k/uL (0-1.0); Monocytes % (A) 8 %; Neutrophils # (A) 10.9 k/uL (1.3-7.7); Neutrophils % (A) 73 %; RBC 3.86 m/uL (4.30-5.90); RDW 15.8 % (11.5-15.5); WBC 14.9 k/uL (3.8-10.6); WBC (Perox) 15.27
[2016-10-04 08:16] LABS: Anion Gap 9 mmol/L; Blood Urea Nitrogen 17 mg/dL (9-20); Calcium 8.7 mg/dL (8.4-10.2); Carbon Dioxide 26 mmol/L (22-30); Chloride 101 mmol/L (98-107); Glucose 137 mg/dL (74-99); Non-African American GFR(MDRD) >60 (>60 ml/min/1.73 sqM); Potassium 4.2 mmol/L (3.5-5.1); Sodium 136 mmol/L (137-145)
--- NOTE | 2016-10-04 08:23 | PN ---
DATE OF SERVICE: 10/03/2016 This 81-year-old gentleman with a past medical history of multiple medical problems was admitted with shortness of breath and the patient was suspected to have left pleuritic pain and a possible left pleural effusion, pneumonia is also being considered. Interestingly, the patient had malignant pleural effusion on the right side which was thought to be a combination of mesothelioma as well as breast cancer, metastasis, the patient had left breast cancer surgery. The antibiotics are being given. The most recent chest x-ray done today which was reviewed by me showed continued small right and increasing left moderate pleural effusion with atelectasis, and consolidation. Interstitial densities also noted. Congestive heart failure needs to be ruled out. CTA of the chest is also noted with multiple findings and no evidence of pulmonary embolism. The patient is also complaining of left-sided chest pain also. Past medical history reviewed. REVIEW OF SYSTEMS: CARDIOVASCULAR: No angina or palpitations. RESPIRATORY: As mentioned earlier. GASTROINTESTINAL: As mentioned earlier. : No dysuria. Nervous system: No numbness or weakness. Current medications are: 1. Driscoll 5 mg q6h p.r.n. 2. DuoNeb q.i.d. and p.r.n. 3. Xanax 0.5 t.i.d. 4. Aspirin 81 mg daily. 5. Colace 100 milligrams b.i.d. 6. Lovenox 40 mg subcu daily. 7. Dilaudid 0.5 q.4 p.r.n. 8. Femara 2.5 mg. 9. Levaquin 750 q.24 hours. 10. Protonix 40 mg daily. 11. Zosyn 3.375 IV q.8. 12. Restoril. PHYSICAL EXAM: Patient is alert and oriented times three, pulse is 110, blood pressure is 120/70, respirations 18, temperature is 97.5, pulse ox 94% on 2 liters. HEENT: Conjunctivae normal. Oral mucosa moist. NECK: No jugular venous distention. No carotid bruit. No lymph node enlargement. CARDIOVASCULAR: S1, S2 muffled. No S3, no S4. RESPIRATORY: Breath sounds diminished at the bases. Bilateral scattered rhonchi and expiratory wheezing and crackles. ABDOMEN: Soft, nontender. No mass palpable. Legs: No edema. No swelling. Nervous system: Higher functions as mentioned earlier. Moves all 4 limbs. No focal deficits. LYMPHATICS: No lymph nodes palpable in the neck, axillae or groin. SKIN: No ulcer, rash or bleeding. LABS: WBC 20, hemoglobin is 10.7. Sodium is 136. ASSESSMENT: 1. Possible acute left lower lobe pneumonia with pleurisy with severe left-sided chest pain with left pleural effusion. 2. Right pleural effusion possibly mesothelioma status post VATS procedure and pleurodesis, possibly breast cancer metastases. 3. History of left breast cancer 2013. 4. History of gastroesophageal reflux disease. 5. Hyperlipidemia. 6. History of recent weight loss. 7. History of asthma. 8. History of adenoidectomy. 9. History of degenerative joint disease. 10. Remote history of nicotine dependence. 11. Increased WBC. 12. Anemia, normocytic anemia of chronic disease. 13. Increased platelets. 14. Hyponatremia possibly hypovolemic. 15. Increased random blood sugar. 16. Increased alkaline phosphatase. 17. Mild to moderate protein calorie malnutrition. 18. FULL CODE. RECOMMENDATIONS AND DISCUSSION: In this 81-year-old gentleman who presented with multiple complex medical issues, we will monitor the patient closely, continue the current medications and continue symptomatic treatment. Otherwise, I would recommend continue with bronchodilators. Continue with empiric antibiotics. Closely follow with pain medications. Closely follow with Dr. Martin. Dr. Cuello is also consulted. Guarded prognosis. Further recommendations to follow. The possibility of CHF was also considered, but; however, NT-proBNP is only 575, I would give a single dose of Lasix and continue to monitor.
[2016-10-04] MEDS: PIPERACILLIN-TAZOBACTAM 3.375 GM in DEXTROSE/WATER 1 50ML.BAG IVPB SCH ×3 (08:31→23:12)
[2016-10-04] MEDS: ENOXAPARIN 40 MG/0.4 ML SYRINGE SQ SCH (08:33)
[2016-10-04] MEDS: DOCUSATE 100 MG CAP PO SCH ×2 (08:34→21:56)
[2016-10-04] MEDS: LETROZOLE 2.5 MG TAB PO SCH (08:34)
[2016-10-04] MEDS: PANTOPRAZOLE 40 MG TABLET PO SCH (08:34)
[2016-10-04] MEDS: MORPHINE SULFATE ER 30 MG TABLET PO SCH ×2 (08:59→21:55)
--- NOTE | 2016-10-04 14:40 | P.PN ---
Subjective Principal diagnosis: Left sided pleuritic chest pain and history of breast cancer with metastasis and mesothelioma. A pleasant 81-year-old male patient with a malignant right-sided pleural effusion, post VATS and surgical biopsy of the right pleura showing metastatic breast cancer and is also a. Note that the patient has history of a left-sided breast cancer for which she has undergone mastectomy 2013 with subsequent chemotherapy that he completed in September 2014. He has been on hormonal treatment since then. Subsequently the patient developed a right-sided pleural effusion and initial thoracentesis yielded no diagnosis and ultimately the patient required a VATS for ultimate and definite diagnosis. The patient had a PET scan that was done in August 2016 and it showed pleural thickening throughout the right hemithorax corresponding with hypermetabolic uptake in an SUV of 3. There was bandlike area of soft tissue density at the right lung base which extended along the right hemidiaphragm anteriorly and the amount of fluid in the right lung has reduced. There was some limited activity in the left lung posteriorly along with some retrocaval pretracheal lymph nodes with an SUV of 2.6. Patient came in yesterday to the burst department because of worsening shortness of breath and acute left pleuritic chest pain. No cough or sputum production. No reported fever or chills. Chest x-ray showed development of bilateral pleural effusions and furthermore a CT angios the chest was done that showed no evidence of pulmonary embolism. There was development of a new left- sided pleural effusion with compressive atelectasis of the left lung base. The amount of fluid is still small. Currently, the patient is on a combination of Levaquin and Zosyn as broad-spectrum antibiotic coverage for any potential pneumonia. The patient has leukocytosis with a white cell count of 23.7. Rest of the electrolytes all within normal limits. On 10/03/2016, Mike remains to be complaining of left-sided pleuritic chest wall pain. His pain is worse with inhalation and deep breathing and cough and. He remains afebrile. His lites tachycardic. He is hemodynamically stable and his pulse ox is around 94% weeks of oxygen nasal cannula. Please refer to discussions was done earlier. As mentioned, the patient had a recent PET scan that showed some activity within the left pleural space however the lung space and the parenchyma was within normal limits. It's much likely that this is either a malignant process within the left chest/lower space. Also possible that we are dealing with a left lower lobe pneumonia with parapneumonic effusion which is somewhat loculated. On the right, the patient has a malignant pleural effusion with metastatic breast cancer with an underlying malignant mesothelioma. His white cell count remains elevated at 20.0. On 10/04/2016, continues to have intermittent episodes of left-sided pleuritic chest wall pain, pain is controlled with narcotics, chest x-ray and CT of the chest showed a relatively small left pleural effusion, has recommended ultrasound, and I would consider thoracentesis if that effusion is not loculated , and large enough to be safely drained. That may relieve some of his pain, plus we could potentially get a cytology diagnosis. Labs were all reviewed, WBC count is improving down to 14.9. The rest of the labs are unremarkable. Objective - Vital Signs Vital signs: Vital Signs Temp 96.1 F L 10/04/16 07:00 Pulse 94 10/04/16 10:55 Resp 18 10/04/16 07:00 BP 110/67 10/04/16 07:00 Pulse Ox 95 10/04/16 07:11 Intake & Output 10/03/16 10/04/16 10/04/16 18:59 06:59 18:59 Intake Total 240 480 Output Total 120 600 Balance 120 -120 Weight 65.771 kg Intake: Oral 240 480 Output: Urine 120 600 Other: Voiding Method Urinal Urinal Urinal # Voids 2 1 - Exam The patient appeared well nourished and normally developed. Vital signs as documented. Head exam is unremarkable. No scleral icterus or corneal arcus noted. Neck is without jugular venous distension, thyromegaly, or carotid bruits. Carotid upstrokes are brisk bilaterally. Breath sounds are diminished in lung bases bilaterally. No wheezes. No rhonchi. No crackles.. Cardiac exam reveals the PMI to be normally sized and situated. Rhythm is regular. First and second heart sounds normal. No murmurs, rubs or gallops. Abdominal exam reveals normal bowel sounds, no masses, no organomegaly and no aortic enlargement. Extremities are nonedematous and both femoral and pedal pulses are normal. - Labs CBC & Chem 7: 10/04/16 07:35 10/04/16 07:35 Labs: Abnormal Lab Results - Last 24 Hours (Table) 04/10/17 04/10/17 Range/Units 07:35 07:35 WBC 14.9 H (3.8-10.6) k/uL RBC 3.86 L (4.30-5.90) m/uL Hgb 10.1 L (13.0-17.5) gm/dL Hct 32.7 L (39.0-53.0) % MCHC 30.7 L (31.0-37.0) g/dL RDW 15.8 H (11.5-15.5) % Plt Count 605 H (150-450) k/uL Neutrophils # 10.9 H (1.3-7.7) k/uL Monocytes # 1.1 H (0-1.0) k/uL Sodium 136 L (137-145) mmol/L Glucose 137 H (74-99) mg/dL Microbiology - Last 24 Hours (Table) 10/02/16 21:28 Gram Stain - Preliminary Sputum Sputum Culture - Preliminary Assessment and Plan Plan: 1 acute pleuritic left-sided chest pain. No evidence of pulmonary embolism. There is development of a new left-sided pleural effusion that was not present on a PET scan that was done and August 2016. This is a new findings. Nevertheless, going back to the PET scan, there was some increased metabolic activity along the pleural surface although the activity and optic was quite low. This could be potentially a pneumonia with parapneumonic effusion. Malignant pleural effusion cannot be completely excluded On 10/03/2016, chest x-ray is not showing any major change in the patient continues to have pleuritic left-sided chest pain. Differential diagnosis remains the same. Possible parapneumonic versus malignant effusion knowing that the patient has had malignancy within the pleural space as documented on the right side of the lung. On 10/04/2016, I ordered ultrasound of the left chest, hoping to be able to perform a left-sided thoracentesis if the fluid is large enough and not loculated. 2 malignant pleural effusion with thoracoscopic lung biopsy indicating metastatic breast and possibly mesothelioma 3 breast cancer 4 leukocytosis 5 hyperlipidemia 6 osteoarthritis 7 BPH 8 nephrolithiasis Recommendation: Continue present antibiotics, continue pain control, overall prognosis is definitely poor and guarded. We'll continue to follow. Awaiting the results and the report on the ultrasound of the chest. Time with Patient: Less than 30
--- NOTE | 2016-10-04 16:24 | US ---
EXAMINATION TYPE: US chest DATE OF EXAM: 10/04/2016 3:05 PM COMPARISON: NONE CLINICAL HISTORY: left pleural effusion. Technique: Multiple sonographic images of the lower left hemithorax posteriorly were obtained for ass essment of pleural effusion. FINDINGS: EXAM MEASUREMENTS: Left Pleural Effusion fluid pocket size: 3.1 cm Left skin surface to fluid distance: 1.9 cm The small pleural effusion appears complex with internal septations. Left side marked for possible thoracentesis outside the dept. Pulmonologists are able to review the images in the patient?s EMR. IMPRESSIONS: Small complex pleural effusion on the left marked for possible thoracentesis.
[2016-10-04] MEDS: HYDROcodone/APAP 5-325MG 1 EACH TAB PO PRN (21:56)
--- NOTE | 2016-10-04 23:17 | PN ---
DATE OF SERVICE: 10/04/2016 This 81-year-old gentleman with a past medical history of multiple medical problems was admitted with possible acute left lower lobe pneumonia with pleurisy. The patient had left pleural effusion. Patient also right pleural effusion, possibly mesothelioma and breast cancer. The patient also has had abnormal PET scan reports previously. Chest ultrasound was recommended by Dr. Mendoza, who is following the patient closely. Small complex pleural effusion, marked for possible thoracocentesis. The patient also had complaints of chest pain. Past medical history reviewed. REVIEW OF SYSTEMS: CARDIOVASCULAR: No angina or palpitations. RESPIRATORY: As mentioned earlier. GI: No nausea, vomiting. : No dysuria, retention. NERVOUS SYSTEM: As mentioned earlier. Current medications are reviewed and include: 1. Weir 5 mg q.6 p.r.n. 2. DuoNeb q.i.d. and p.r.n. 3. Xanax 0.25 t.i.d. 4. Aspirin 81 mg daily. 5. Colace 100 mg b.i.d. 6. Lovenox 40 mg subcutaneously daily. 7. Dilaudid 0.5 mg q.4 p.r.n. 8. Dilaudid 1 mg q.3 p.r.n. 9. Femara 2.5 mg daily. 10. Levaquin 750 q.24 hours. 11. MS Contin 30 mg b.i.d. 12. Protonix 40 mg daily. 13. Zosyn 3.375 IV q.8. 14. Restoril 15 mg at bedtime p.r.n. PHYSICAL EXAMINATION: Patient is alert and oriented x3. Pulse 87, blood pressure 113/68, respiration 18, temperature 97.7, pulse ox 98% on 3 L. HEENT: Conjunctivae normal. NECK: No jugular venous distention. CARDIOVASCULAR SYSTEM: S1, S2 muffled. RESPIRATORY SYSTEM: Breath sounds diminished at the bases. Bilateral scattered rhonchi and crackles. ABDOMEN: Soft, non-tender. No mass palpable. LEGS: No edema. No swelling. NERVOUS SYSTEM: Higher functions as mentioned earlier. Moves all 4 limbs. No focal motor or sensory deficit. LYMPHATICS: No lymph node palpable in neck, axillae or groin. SKIN: No ulcer, rash, bleeding. LABS: WBC 14.3, hemoglobin 10.1. Otherwise, sodium 136. Influenza is negative. ASSESSMENT: 1. Possible acute left lower pneumonia with pleurisy and severe left-sided chest pain with left pleural effusion. 2. Right pleural effusion history with probably mesothelioma versus breast cancer metastases, status post VATS procedure and pleurodesis. 3. History of left breast cancer surgery in 2014 with mastectomy. 4. History of gastroesophageal reflux disease. 5. Hyperlipidemia. 6. History of recent weight loss. 7. History of asthma, intermittent, chronic. 8. History of adenoidectomy. 9. History of degenerative joint disease. 10. Remote history of nicotine dependence. 11. Increased white count. 12. Anemia, normocytic; anemia of chronic disease. 13. Increased platelets. 14. Hyponatremia, possibly hypovolemic. 15. Increased random blood sugar. 16. Increased alkaline phosphatase. 17. Mild to moderate protein-calorie malnutrition. 18. FULL CODE. RECOMMENDATIONS AND DISCUSSION: In this 81-year-old gentleman who presented with multiple complex medical issues, we will monitor the patient closely, continue the current medications, continue symptomatic treatment, continue with the pain medication, continue the rest of the medication. Dr. Mendoza's input appreciated. Chest ultrasound was done. Continue the current medications. Dr. Mendoza is recommending pain control. Possible pleural aspiration. Overall prognosis guarded. Discussed with family. Dr. Mendoza also will discuss with the family. Further recommendations to follow.
[2016-10-05] MEDS: LEVOFLOXACIN 750 MG TAB PO SCH (05:14)
[2016-10-05] MEDS: HYDROmorphone 1 MG/ML 1 ML SYRINGE IVP PRN ×3 (05:18→19:34)
[2016-10-05] MEDS: IPRATROPIUM-ALBUTEROL 3 ML NEB INHALATION SCH ×4 (07:14→20:42)
[2016-10-05] MEDS: DOCUSATE 100 MG CAP PO SCH ×2 (07:56→21:46)
[2016-10-05] MEDS: PANTOPRAZOLE 40 MG TABLET PO SCH (07:56)
[2016-10-05] MEDS: LETROZOLE 2.5 MG TAB PO SCH (07:57)
[2016-10-05] MEDS: ENOXAPARIN 40 MG/0.4 ML SYRINGE SQ SCH (07:57)
[2016-10-05] MEDS: MORPHINE SULFATE ER 30 MG TABLET PO SCH ×2 (08:11→21:46)
[2016-10-05] MEDS: PIPERACILLIN-TAZOBACTAM 3.375 GM in DEXTROSE/WATER 1 50ML.BAG IVPB SCH ×2 (08:12→18:22)
[2016-10-05 08:53] LABS: Anisocytosis Slight; Basophils % (A) 0 %; CH 25.1; CHCM 29.3; Eosinophils # (A) 0.2 k/uL (0-0.7); Eosinophils % (A) 1 %; HCT 34.4 % (39.0-53.0); HDW 2.59; HGB 10.2 gm/dL (13.0-17.5); Hypochromasia Marked; Luc # (Auto) 0.31; Luc % (Auto) 2; Lymphocytes # (A) 2.8 k/uL (1.0-4.8); Lymphocytes % (A) 21 %; MCH 25.5 pg (25.0-35.0); MCHC 29.7 g/dL (31.0-37.0); MCV 85.8 fL (80.0-100.0); Mean Platelet Volume 6.7; Monocytes % (A) 7 %; Neutrophils # (A) 9.4 k/uL (1.3-7.7); Neutrophils % (A) 69 %; WBC 13.8 k/uL (3.8-10.6); WBC (Perox) 14.74
[2016-10-05 09:12] LABS: Anion Gap 9 mmol/L; Blood Urea Nitrogen 18 mg/dL (9-20); Calcium 9.3 mg/dL (8.4-10.2); Carbon Dioxide 29 mmol/L (22-30); Chloride 101 mmol/L (98-107); Glucose 85 mg/dL (74-99); Non-African American GFR(MDRD) >60 (>60 ml/min/1.73 sqM); Potassium 4.1 mmol/L (3.5-5.1); Sodium 139 mmol/L (137-145)
[2016-10-05] MEDS: ONDANSETRON 4 MG/2 ML VIAL IVP PRN (12:36)
[2016-10-05] MEDS: LACTULOSE 20 GM/30 ML CUP PO SCH ×3 (12:49→21:47)
[2016-10-05] MEDS: HYDROcodone/APAP 5-325MG 1 EACH TAB PO PRN (12:49)
--- NOTE | 2016-10-05 13:26 | P.PN ---
Subjective A pleasant 81-year-old male patient with a malignant right-sided pleural effusion, post VATS and surgical biopsy of the right pleura showing metastatic breast cancer and is also a. Note that the patient has history of a left-sided breast cancer for which she has undergone mastectomy 2013 with subsequent chemotherapy that he completed in September 2014. He has been on hormonal treatment since then. Subsequently the patient developed a right-sided pleural effusion and initial thoracentesis yielded no diagnosis and ultimately the patient required a VATS for ultimate and definite diagnosis. The patient had a PET scan that was done in August 2016 and it showed pleural thickening throughout the right hemithorax corresponding with hypermetabolic uptake in an SUV of 3. There was bandlike area of soft tissue density at the right lung base which extended along the right hemidiaphragm anteriorly and the amount of fluid in the right lung has reduced. There was some limited activity in the left lung posteriorly along with some retrocaval pretracheal lymph nodes with an SUV of 2.6. Patient came in yesterday to the burst department because of worsening shortness of breath and acute left pleuritic chest pain. No cough or sputum production. No reported fever or chills. Chest x-ray showed development of bilateral pleural effusions and furthermore a CT angios the chest was done that showed no evidence of pulmonary embolism. There was development of a new left- sided pleural effusion with compressive atelectasis of the left lung base. The amount of fluid is still small. Currently, the patient is on a combination of Levaquin and Zosyn as broad-spectrum antibiotic coverage for any potential pneumonia. The patient has leukocytosis with a white cell count of 23.7. Rest of the electrolytes all within normal limits. On 10/03/2016, Mike remains to be complaining of left-sided pleuritic chest wall pain. His pain is worse with inhalation and deep breathing and cough and. He remains afebrile. His lites tachycardic. He is hemodynamically stable and his pulse ox is around 94% weeks of oxygen nasal cannula. Please refer to discussions was done earlier. As mentioned, the patient had a recent PET scan that showed some activity within the left pleural space however the lung space and the parenchyma was within normal limits. It's much likely that this is either a malignant process within the left chest/lower space. Also possible that we are dealing with a left lower lobe pneumonia with parapneumonic effusion which is somewhat loculated. On the right, the patient has a malignant pleural effusion with metastatic breast cancer with an underlying malignant mesothelioma. His white cell count remains elevated at 20.0. On 10/04/2016, continues to have intermittent episodes of left-sided pleuritic chest wall pain, pain is controlled with narcotics, chest x-ray and CT of the chest showed a relatively small left pleural effusion, has recommended ultrasound, and I would consider thoracentesis if that effusion is not loculated , and large enough to be safely drained. That may relieve some of his pain, plus we could potentially get a cytology diagnosis. Labs were all reviewed, WBC count is improving down to 14.9. The rest of the labs are unremarkable. The patient is seen again today 10/05/2016 in follow-up on the regular medical floor. He is awake and alert in no acute distress. He does have a small left- sided pleural effusion and an ultrasound revealed a small complex pleural effusion measuring 3.1 cm and noted internal septations. His pain is fairly well controlled. He is maintaining good O2 saturations in the upper 90s on 3 L/ m per nasal cannula. Blood and sputum cultures reveal no growth. Count is recovering. Objective - Vital Signs Vital signs: Vital Signs Temp 96.8 F L 10/05/16 07:00 Pulse 92 10/05/16 11:30 Resp 16 10/05/16 08:00 BP 132/62 10/05/16 07:00 Pulse Ox 96 10/05/16 07:16 Intake & Output 10/04/16 10/05/16 10/05/16 18:59 06:59 18:59 Intake Total 450 480 240 Balance 450 480 240 Intake: Intake, IV Titration 450 Amount Levofloxacin 750Mg-D5w 150 Pmx 750 mg In Dextrose/ Water 1 150ml.bag @ 100 mls/hr IVPB Q24H [facility] Rx#: [id number] Piperacillin-Tazobactam 3 50 .375 gm In Dextrose/Water 1 50ml.bag @ 12.5 mls/hr IVPB Q8HR [facility] Rx#: [id number] Sodium Chloride 0.9% 1, 250 000 ml @ 100 mls/hr IV . Q10H [facility] Rx#:[id number] Oral 480 240 Other: Voiding Method Urinal Urinal Urinal # Voids 2 1 - Exam The patient appeared well nourished and normally developed. Vital signs as documented. Head exam is unremarkable. No scleral icterus or corneal arcus noted. Neck is without jugular venous distension, thyromegaly, or carotid bruits. Carotid upstrokes are brisk bilaterally. Breath sounds are diminished in lung bases bilaterally. No wheezes. No rhonchi. No crackles.. Cardiac exam reveals the PMI to be normally sized and situated. Rhythm is regular. First and second heart sounds normal. No murmurs, rubs or gallops. Abdominal exam reveals normal bowel sounds, no masses, no organomegaly and no aortic enlargement. Extremities are nonedematous and both femoral and pedal pulses are normal. - Labs CBC & Chem 7: 10/05/16 08:21 10/05/16 08:21 Labs: Abnormal Lab Results - Last 24 Hours (Table) 10/05/16 10/05/16 Range/Units 08:21 08:21 WBC 13.8 H (3.8-10.6) k/uL RBC 4.00 L (4.30-5.90) m/uL Hgb 10.2 L (13.0-17.5) gm/dL Hct 34.4 L (39.0-53.0) % MCHC 29.7 L (31.0-37.0) g/dL RDW 16.0 H (11.5-15.5) % Plt Count 610 H (150-450) k/uL Neutrophils # 9.4 H (1.3-7.7) k/uL Creatinine 0.65 L (0.66-1.25) mg/dL Microbiology - Last 24 Hours (Table) 10/02/16 21:28 Gram Stain - Final Sputum Sputum Culture - Final Assessment and Plan Plan: 1 acute pleuritic left-sided chest pain. No evidence of pulmonary embolism. There is development of a new left-sided pleural effusion that was not present on a PET scan that was done and August 2016. This is a new findings. Nevertheless, going back to the PET scan, there was some increased metabolic activity along the pleural surface although the activity and optic was quite low. This could be potentially a pneumonia with parapneumonic effusion. Malignant pleural effusion cannot be completely excluded. 2 malignant pleural effusion with thoracoscopic lung biopsy indicating metastatic breast and possibly mesothelioma 3 breast cancer 4 leukocytosis 5 hyperlipidemia 6 osteoarthritis 7 BPH 8 nephrolithiasis Plan: The patient was seen and evaluated by Dr. Mendoza. Ultrasound of the chest was reviewed. The fluid is small and quite loculated. No plans for thoracentesis at this time. We'll continue with his current medications. We'll continue to follow.
--- NOTE | 2016-10-05 21:58 | PN ---
DATE OF SERVICE: 10/05/2016 This 81-year-old gentleman who was admitted with acute left lower lobe pneumonia with pleurisy is being closely monitored. The patient also has a history of mesothelioma/breast cancer metastases. Per Dr. Mendoza, the fluid on the ultrasound is small, and there are no plans for aspiration. Plan is to continue with the conservative line of management. On exam, alert and oriented x2. Pulse 113, blood pressure 103/58, respiration 18, temperature 98.4, pulse ox 100% on 3 L. HEENT: Conjunctivae normal. NECK: No jugular venous distention. CARDIOVASCULAR SYSTEM: S1, S2 muffled. RESPIRATORY SYSTEM: Breath sounds diminished at the bases. A few scattered rhonchi and crackles. ABDOMEN: Soft, non-tender. LEGS: No edema. No swelling. NERVOUS SYSTEM: No focal deficit. LABS: WBC 3.8. Hemoglobin is 10.2. ASSESSMENT: 1. Acute left lower lobe pneumonia, possibly with pleurisy, and severe left-sided chest pain with minimal left pleural effusion, present on admission. 2. Right pleural effusion with history of probably mesothelioma versus of breast cancer metastases, status post VATS procedure and pleurodesis previously. 3. History of left breast cancer surgery in 2014 with mastectomy. 4. History of gastroesophageal reflux disease. 5. Hyperlipidemia. 6. History of recent weight loss. 7. History of asthma, intermittent, chronic. 8. History of adenoidectomy. 9. History of degenerative joint disease. 10. Remote history of nicotine dependence. 11. Increased white count. 12. Anemia, normocytic; anemia of chronic disease. 13. Increased platelets. 14. Hyponatremia, possibly hypovolemic. 15. Increased random blood sugar. 16. Increased alkaline phosphatase. 17. Mild to moderate protein-calorie malnutrition. 18. FULL CODE. RECOMMENDATIONS AND DISCUSSION: I recommend to continue with the current medications, continue with the monitoring, symptomatic treatment. Otherwise, at this time I would recommend continuing with antibiotics. White count is decreasing at this time. Pain medications. Guarded prognosis. Further recommendations to follow.
[2016-10-06] MEDS: PIPERACILLIN-TAZOBACTAM 3.375 GM in DEXTROSE/WATER 1 50ML.BAG IVPB SCH ×3 (00:20→17:11)
[2016-10-06] MEDS: HYDROmorphone 1 MG/ML 1 ML SYRINGE IVP PRN (00:45)
[2016-10-06] MEDS: PANTOPRAZOLE 40 MG TABLET PO SCH (06:41)
[2016-10-06] MEDS: LEVOFLOXACIN 750 MG TAB PO SCH (06:41)
[2016-10-06] MEDS: MORPHINE SULFATE ER 30 MG TABLET PO SCH ×2 (08:01→21:18)
[2016-10-06] MEDS: DOCUSATE 100 MG CAP PO SCH ×2 (08:02→21:19)
[2016-10-06] MEDS: ENOXAPARIN 40 MG/0.4 ML SYRINGE SQ SCH (08:02)
[2016-10-06] MEDS: LETROZOLE 2.5 MG TAB PO SCH (08:03)
[2016-10-06] MEDS: LACTULOSE 20 GM/30 ML CUP PO SCH ×2 (08:06→21:20)
[2016-10-06 08:21] LABS: Anisocytosis Slight; Basophils % (A) 0 %; CH 25.4; CHCM 30.1; Eosinophils # (A) 0.2 k/uL (0-0.7); Eosinophils % (A) 1 %; HCT 33.5 % (39.0-53.0); HDW 2.65; HGB 9.8 gm/dL (13.0-17.5); Hypochromasia Marked; Luc # (Auto) 0.19; Luc % (Auto) 2; Lymphocytes # (A) 1.4 k/uL (1.0-4.8); Lymphocytes % (A) 11 %; MCH 24.8 pg (25.0-35.0); MCHC 29.3 g/dL (31.0-37.0); MCV 84.9 fL (80.0-100.0); Monocytes % (A) 8 %; Neutrophils # (A) 10.1 k/uL (1.3-7.7); Neutrophils % (A) 78 %; RBC 3.94 m/uL (4.30-5.90); RDW 16.4 % (11.5-15.5); WBC 12.9 k/uL (3.8-10.6); WBC (Perox) 12.26
[2016-10-06] MEDS: IPRATROPIUM-ALBUTEROL 3 ML NEB INHALATION SCH ×4 (08:54→21:29)
[2016-10-06 09:44] LABS: Anion Gap 7 mmol/L; Blood Urea Nitrogen 19 mg/dL (9-20); Calcium 9.2 mg/dL (8.4-10.2); Carbon Dioxide 29 mmol/L (22-30); Chloride 104 mmol/L (98-107); Glucose 99 mg/dL (74-99); Non-African American GFR(MDRD) >60 (>60 ml/min/1.73 sqM); Sodium 140 mmol/L (137-145)
--- NOTE | 2016-10-06 11:38 | P.PN ---
Subjective A pleasant 81-year-old male patient with a malignant right-sided pleural effusion, post VATS and surgical biopsy of the right pleura showing metastatic breast cancer and is also a. Note that the patient has history of a left-sided breast cancer for which she has undergone mastectomy 2013 with subsequent chemotherapy that he completed in September 2014. He has been on hormonal treatment since then. Subsequently the patient developed a right-sided pleural effusion and initial thoracentesis yielded no diagnosis and ultimately the patient required a VATS for ultimate and definite diagnosis. The patient had a PET scan that was done in August 2016 and it showed pleural thickening throughout the right hemithorax corresponding with hypermetabolic uptake in an SUV of 3. There was bandlike area of soft tissue density at the right lung base which extended along the right hemidiaphragm anteriorly and the amount of fluid in the right lung has reduced. There was some limited activity in the left lung posteriorly along with some retrocaval pretracheal lymph nodes with an SUV of 2.6. Patient came in yesterday to the emergency department because of worsening shortness of breath and acute left pleuritic chest pain. No cough or sputum production. No reported fever or chills. Chest x-ray showed development of bilateral pleural effusions and furthermore a CT angios the chest was done that showed no evidence of pulmonary embolism. There was development of a new left- sided pleural effusion with compressive atelectasis of the left lung base. The amount of fluid is still small. Currently, the patient is on a combination of Levaquin and Zosyn as broad-spectrum antibiotic coverage for any potential pneumonia. The patient has leukocytosis with a white cell count of 23.7. Rest of the electrolytes all within normal limits. On 10/03/2016, Mike remains to be complaining of left-sided pleuritic chest wall pain. His pain is worse with inhalation and deep breathing and cough and. He remains afebrile. His lites tachycardic. He is hemodynamically stable and his pulse ox is around 94% weeks of oxygen nasal cannula. Please refer to discussions was done earlier. As mentioned, the patient had a recent PET scan that showed some activity within the left pleural space however the lung space and the parenchyma was within normal limits. It's much likely that this is either a malignant process within the left chest/lower space. Also possible that we are dealing with a left lower lobe pneumonia with parapneumonic effusion which is somewhat loculated. On the right, the patient has a malignant pleural effusion with metastatic breast cancer with an underlying malignant mesothelioma. His white cell count remains elevated at 20.0. On 10/04/2016, continues to have intermittent episodes of left-sided pleuritic chest wall pain, pain is controlled with narcotics, chest x-ray and CT of the chest showed a relatively small left pleural effusion, has recommended ultrasound, and I would consider thoracentesis if that effusion is not loculated , and large enough to be safely drained. That may relieve some of his pain, plus we could potentially get a cytology diagnosis. Labs were all reviewed, WBC count is improving down to 14.9. The rest of the labs are unremarkable. The patient is seen again today 10/05/2016 in follow-up on the regular medical floor. He is awake and alert in no acute distress. He does have a small left- sided pleural effusion and an ultrasound revealed a small complex pleural effusion measuring 3.1 cm and noted internal septations. His pain is fairly well controlled. He is maintaining good O2 saturations in the upper 90s on 3 L/ m per nasal cannula. Blood and sputum cultures reveal no growth. Count is recovering. The patient is seen again today 10/06/2016 in follow-up on the oncology unit. He is awake and alert in no acute distress. His daughter is at the bedside. He denies any worsening shortness of breath. He does have a loose nonproductive cough that he has trouble clearing at times. His left-sided chest pain is subsiding. He is maintained on bronchodilators, Zosyn and Levaquin. He is afebrile. He is maintaining good O2 saturations in the high 90s on 3 L/m per nasal cannula. Objective - Vital Signs Vital signs: Vital Signs Temp 97.5 F L 10/06/16 07:00 Pulse 88 10/06/16 09:06 Resp 18 10/06/16 07:00 BP 99/71 10/06/16 07:00 Pulse Ox 99 10/06/16 07:00 Intake & Output 10/05/16 10/06/16 10/06/16 18:59 06:59 18:59 Intake Total 240 475 Output Total 500 Balance 240 -25 Intake: Intake, IV Titration 150 Amount Piperacillin-Tazobactam 3 150 .375 gm In Dextrose/Water 1 50ml.bag @ 12.5 mls/hr IVPB Q8HR [facility] Rx#: [id number] Oral 240 325 Output: Urine 500 Other: Voiding Method Urinal Urinal # Voids 1 1 - Exam The patient appeared well nourished and normally developed. Vital signs as documented. Head exam is unremarkable. No scleral icterus or corneal arcus noted. Neck is without jugular venous distension, thyromegaly, or carotid bruits. Carotid upstrokes are brisk bilaterally. Breath sounds are diminished in lung bases bilaterally. No wheezes. No rhonchi. No crackles.. Cardiac exam reveals the PMI to be normally sized and situated. Rhythm is regular. First and second heart sounds normal. No murmurs, rubs or gallops. Abdominal exam reveals normal bowel sounds, no masses, no organomegaly and no aortic enlargement. Extremities are nonedematous and both femoral and pedal pulses are normal. - Labs CBC & Chem 7: 10/06/16 07:48 10/06/16 07:48 Labs: Abnormal Lab Results - Last 24 Hours (Table) 10/06/16 10/06/16 Range/Units 07:48 07:48 WBC 12.9 H (3.8-10.6) k/uL RBC 3.94 L (4.30-5.90) m/uL Hgb 9.8 L (13.0-17.5) gm/dL Hct 33.5 L (39.0-53.0) % MCH 24.8 L (25.0-35.0) pg MCHC 29.3 L (31.0-37.0) g/dL RDW 16.4 H (11.5-15.5) % Plt Count 549 H (150-450) k/uL Neutrophils # 10.1 H (1.3-7.7) k/uL Creatinine 0.64 L (0.66-1.25) mg/dL Microbiology - Last 24 Hours (Table) 10/02/16 21:28 Gram Stain - Final Sputum Sputum Culture - Final Assessment and Plan Plan: 1 acute pleuritic left-sided chest pain. No evidence of pulmonary embolism. There is development of a new left-sided pleural effusion that was not present on a PET scan that was done and August 2016. This is a new findings. Nevertheless, going back to the PET scan, there was some increased metabolic activity along the pleural surface although the activity and optic was quite low. This could be potentially a pneumonia with parapneumonic effusion. Malignant pleural effusion cannot be completely excluded. 2 malignant pleural effusion with thoracoscopic lung biopsy indicating metastatic breast and possibly mesothelioma 3 breast cancer 4 leukocytosis, improving currently at 12.9. 5 hyperlipidemia 6 osteoarthritis 7 BPH 8 nephrolithiasis Plan: The patient was seen and evaluated by Dr. Mendoza. We'll continue with his current medications. We'll repeat his chest x-ray in the a.m. We will increase his activity as tolerated. We'll continue to follow.
--- NOTE | 2016-10-06 12:22 | PN ---
The patient is an 81-year-old gentleman admitted with left-sided pleural effusion, is being treated for parapneumonic effusion, although patient has history of right-sided pleural effusion which was loculated in the past, it appeared to be malignant showing ( ) different malignant cells, which one is a mesothelial cells consistent with mesothelioma and also breast cancer cells. Patient is known to have breast cancer in the past. The patient is an elderly 81-year-old gentleman and I discussed his case with the daughter and daughter is leaning towards conservative measures. Patient is presently on broad-spectrum antibiotics, Zosyn and Levaquin. Pulmonology is following the patient as well. There is a family meeting tomorrow regarding his options, goals of care and that meeting is being arranged by oncology services to discuss the options for his possible malignancy on the right side as well as left side, although there is no clear-cut evidence this is a malignant pleural effusion on the left side. REVIEW OF SYSTEMS: CARDIOVASCULAR: No chest pain, no orthopnea, no PND, no palpitations. RESPIRATORY: The patient is complaining of chest pain whenever he takes a deep breath on the left side because of the pleurisy. GASTROINTESTINAL: No diarrhea, nausea or vomiting. No abdominal pain. Normoactive bowel sounds. NEUROLOGIC: No headaches, no weakness, no numbness. Medications were reviewed. PHYSICAL EXAMINATION: VITAL SIGNS: Temperature 97.5, pulse of 88, respiratory rate of 18, blood pressure is 99/71, saturating at 99% on 3 L of oxygen by nasal cannula. Patient may not need 3 L and his low blood pressure is probably due to narcotic medications he is receiving for pain. GENERAL: The patient is alert and oriented x3, not in any acute distress. Well developed, well nourished. HEENT: Pupils are round and equally reacting to light. EOMI. No scleral icterus. No conjunctival pallor. Normocephalic, atraumatic. No pharyngeal erythema. No thyromegaly. CARDIOVASCULAR: S1 and S2 present. No murmurs, rubs, or gallops. LUNG EXAMINATION: Crackles on the right lower lung base was appreciated and I did not appreciate any clear-cut bronchophony or egophony. ABDOMEN: Soft, nontender, nondistended, normoactive bowel sounds. No palpable organomegaly. MUSCULOSKELETAL: No joint swelling or deformity. EXTREMITIES: No cyanosis, clubbing, or pedal edema. NEUROLOGICAL: Gross neurological examination did not reveal any focal deficits. SKIN: No rashes. FINAL DIAGNOSES: 1. Left-sided pleural effusion, possibility of parapneumonic and malignant pleural effusion cannot be ruled out. 2. History of right-sided pleural effusion, which mesothelioma and breast cancer metastasis and a previous VATS procedure in the past and patient's family is not leaning towards VATS procedure again on the left side. 3. History of breast cancer, surgery and mastectomy. 4. Gastroesophageal reflux disease. 5. Hyperlipidemia. 6. Degenerative joint disease. 7. Sepsis secondary to possible pneumonia and parapneumonic effusion. 8. Mild to moderate protein calorie malnutrition. PLAN: Continue with present antibiotics and medications. Family meeting as mentioned above. ( ) I continued with the pain medications as it is. MTDD
[2016-10-06] MEDS: guaiFENesin 600 MG TABLET.ER PO SCH ×2 (13:05→21:20)
[2016-10-06] MEDS: ALPRAZolam 0.25 MG TAB PO PRN ×2 (13:10→21:18)
--- NOTE | 2016-10-06 18:03 | P.PN ---
Subjective Principal diagnosis: Pleuritic chest pain, STUART Pt seen today in followup, he continues to be SOB with even the slightest activity, pain in left chest persists despite multiple pain meds, worse when he coughs or is active, he is weak, not eating much, has no appetite. When asked if he would like to start some PT due to progressive weakness he stated he does not want to start that until his pain is controlled. Objective - Vital Signs Vital signs: Vital Signs Temp 97.7 F 10/06/16 15:00 Pulse 96 10/06/16 16:43 Resp 18 10/06/16 15:00 BP 105/69 10/06/16 15:00 Pulse Ox 94 L 10/06/16 15:00 Intake & Output 10/05/16 10/06/16 10/06/16 18:59 06:59 18:59 Intake Total 240 475 Output Total 500 Balance 240 -25 Intake: Intake, IV Titration 150 Amount Piperacillin-Tazobactam 3 150 .375 gm In Dextrose/Water 1 50ml.bag @ 12.5 mls/hr IVPB Q8HR [facility] Rx#: [id number] Oral 240 325 Output: Urine 500 Other: Voiding Method Urinal Urinal Urinal # Voids 1 1 3 - Constitutional General appearance: Present: average body habitus, cooperative, mild distress - Respiratory Respiratory: bilateral: diminished, other (weak inspiratory effort) - Cardiovascular Heart sounds: normal: S1, S2 - Peripheral edema leg Peripheral Edema: bilateral: None - Gastrointestinal General gastrointestinal: Present: normal bowel sounds, soft - Musculoskeletal Musculoskeletal: Present: generalized weakness - Labs CBC & Chem 7: 10/06/16 07:48 10/06/16 07:48 Labs: Abnormal Lab Results - Last 24 Hours (Table) 10/06/16 10/06/16 Range/Units 07:48 07:48 WBC 12.9 H (3.8-10.6) k/uL RBC 3.94 L (4.30-5.90) m/uL Hgb 9.8 L (13.0-17.5) gm/dL Hct 33.5 L (39.0-53.0) % MCH 24.8 L (25.0-35.0) pg MCHC 29.3 L (31.0-37.0) g/dL RDW 16.4 H (11.5-15.5) % Plt Count 549 H (150-450) k/uL Neutrophils # 10.1 H (1.3-7.7) k/uL Creatinine 0.64 L (0.66-1.25) mg/dL Assessment and Plan (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 He is not sure if he is interested in any treatments so we are going to meet with him and his daughter tomorrow to discuss options for care, clarify goals and will proceed with orders from there. Pulmonary notes reviewed. Not enough fluid for thoracentesis at this time. Pain meds reviewed, no acute changes. Pt encouraged to tell nursing when he is having pain and we can assess need better.
[2016-10-07] MEDS: PIPERACILLIN-TAZOBACTAM 3.375 GM in DEXTROSE/WATER 1 50ML.BAG IVPB SCH ×2 (00:20→08:03)
[2016-10-07] MEDS: LEVOFLOXACIN 750 MG TAB PO SCH (06:19)
--- NOTE | 2016-10-07 07:13 | XR ---
EXAMINATION TYPE: XR chest 1V portable DATE OF EXAM: 10/07/2016 6:59 AM HISTORY: Shortness of breath. COMPARISON: 10/03/2016 TECHNIQUE: Single view of the chest is submitted. FINDINGS: Demonstrated are scattered senescent parenchymal change. Progressive basilar infiltrate and volume loss noted. Increasing left-sided pleural effusion suspecte d. Also increase in right-sided pleural effusion. The heart is stable. Hilar and mediastinal structures are within normal limits. Degenerative changes are seen of the dorsal spine. IMPRESSION: 1. Progressive basilar infiltrate and volume loss noted. Increasing left-sided pleural effusion susp ected. Also increase in right-sided pleural effusion.
[2016-10-07] MEDS: guaiFENesin 600 MG TABLET.ER PO SCH (08:03)
[2016-10-07] MEDS: ENOXAPARIN 40 MG/0.4 ML SYRINGE SQ SCH (08:03)
[2016-10-07] MEDS: DOCUSATE 100 MG CAP PO SCH (08:03)
[2016-10-07] MEDS: LETROZOLE 2.5 MG TAB PO SCH (08:04)
[2016-10-07] MEDS: LACTULOSE 20 GM/30 ML CUP PO SCH (08:04)
[2016-10-07] MEDS: ONDANSETRON 4 MG/2 ML VIAL IVP PRN (08:04)
[2016-10-07] MEDS: MORPHINE SULFATE ER 30 MG TABLET PO SCH (08:05)
[2016-10-07] MEDS: PANTOPRAZOLE 40 MG TABLET PO SCH (08:06)
[2016-10-07] MEDS: ALPRAZolam 0.25 MG TAB PO PRN (08:06)
[2016-10-07 08:16] LABS: Anisocytosis Slight; Basophils # (A) 0.1 k/uL (0-0.2); Basophils % (A) 0 %; CH 24.7; CHCM 28.3; Eosinophils # (A) 0.2 k/uL (0-0.7); Eosinophils % (A) 2 %; HDW 2.49; HGB 10.4 gm/dL (13.0-17.5); Hypochromasia Marked; Luc # (Auto) 0.26; Luc % (Auto) 2; Lymphocytes # (A) 1.7 k/uL (1.0-4.8); Lymphocytes % (A) 14 %; MCH 24.5 pg (25.0-35.0); MCHC 28.1 g/dL (31.0-37.0); MCV 87.4 fL (80.0-100.0); Mean Platelet Volume 6.7; Monocytes # (A) 0.9 k/uL (0-1.0); Monocytes % (A) 8 %; Neutrophils # (A) 8.9 k/uL (1.3-7.7); Neutrophils % (A) 74 %; RBC 4.23 m/uL (4.30-5.90); RDW 16.1 % (11.5-15.5); WBC (Perox) 11.74
[2016-10-07 08:44] LABS: Anion Gap 7 mmol/L; Blood Urea Nitrogen 18 mg/dL (9-20); Calcium 9.1 mg/dL (8.4-10.2); Carbon Dioxide 31 mmol/L (22-30); Chloride 102 mmol/L (98-107); Glucose 88 mg/dL (74-99); Non-African American GFR(MDRD) >60 (>60 ml/min/1.73 sqM); Potassium 4.3 mmol/L (3.5-5.1); Sodium 140 mmol/L (137-145)
[2016-10-07] MEDS: IPRATROPIUM-ALBUTEROL 3 ML NEB INHALATION SCH (09:10)
[2016-10-07 09:27] VITALS: BP 140/75; PULSE 87; RESP 16; TEMP 97.5
--- NOTE | 2016-10-07 12:53 | P.PN ---
Subjective Principal diagnosis: Pleuritic chest pain, STUART Pt seen today in followup, he continues to have left chest pain with cough or activity. He is not improving, feeling more weak. He is not wanting PT. Family is at bedside to discuss lack of progress, dual cancer diagnosis, intent of treatment, patient goals and to develop a plan of care. Objective - Vital Signs Vital signs: Vital Signs Temp 97.5 F L 10/07/16 07:00 Pulse 96 10/07/16 09:19 Resp 16 10/07/16 07:00 BP 140/75 10/07/16 07:00 Pulse Ox 99 10/07/16 09:10 Intake & Output 10/06/16 10/07/16 10/07/16 18:59 06:59 18:59 Intake Total 40 Output Total 125 Balance -85 Intake: IV 40 .9@20 40 Output: Urine 125 Other: Voiding Method Urinal Bedside Commode Urinal # Voids 3 # Bowel Movements 1 - Exam Pt is sitting up in bed, mild treamor at rest, no visible SOB or distress noted , he is alert and oriented to self, place, time and situation. 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 We discussed lack of improvement with current treatments. It is felt that most likely symptoms are being caused by cancer. Cancer treatment options at this time are limited to chemotherapy and due to progression of weakness and poor performance status pt is not a candidate for treatment. We discussed trying rehabilitation but pt does not want that. Pt would like to go home. Discussed with family concerns for being able to provide care in the home with pt current poor physical health. Plan is for palliative care with transition to hospice as pt needs change. Social work has been consulted and case was discussed, she will have a meeting with family. Case briefly discussed with IM, they have been updated, pt is ok from a Hem/Onc standpoint to be discharged once plans are in place.
--- NOTE | 2016-10-07 15:14 | P.PN ---
Subjective A pleasant 81-year-old male patient with a malignant right-sided pleural effusion, post VATS and surgical biopsy of the right pleura showing metastatic breast cancer and is also a. Note that the patient has history of a left-sided breast cancer for which she has undergone mastectomy 2013 with subsequent chemotherapy that he completed in September 2014. He has been on hormonal treatment since then. Subsequently the patient developed a right-sided pleural effusion and initial thoracentesis yielded no diagnosis and ultimately the patient required a VATS for ultimate and definite diagnosis. The patient had a PET scan that was done in August 2016 and it showed pleural thickening throughout the right hemithorax corresponding with hypermetabolic uptake in an SUV of 3. There was bandlike area of soft tissue density at the right lung base which extended along the right hemidiaphragm anteriorly and the amount of fluid in the right lung has reduced. There was some limited activity in the left lung posteriorly along with some retrocaval pretracheal lymph nodes with an SUV of 2.6. Patient came in yesterday to the emergency department because of worsening shortness of breath and acute left pleuritic chest pain. No cough or sputum production. No reported fever or chills. Chest x-ray showed development of bilateral pleural effusions and furthermore a CT angios the chest was done that showed no evidence of pulmonary embolism. There was development of a new left- sided pleural effusion with compressive atelectasis of the left lung base. The amount of fluid is still small. Currently, the patient is on a combination of Levaquin and Zosyn as broad-spectrum antibiotic coverage for any potential pneumonia. The patient has leukocytosis with a white cell count of 23.7. Rest of the electrolytes all within normal limits. On 10/03/2016, Mike remains to be complaining of left-sided pleuritic chest wall pain. His pain is worse with inhalation and deep breathing and cough and. He remains afebrile. His lites tachycardic. He is hemodynamically stable and his pulse ox is around 94% weeks of oxygen nasal cannula. Please refer to discussions was done earlier. As mentioned, the patient had a recent PET scan that showed some activity within the left pleural space however the lung space and the parenchyma was within normal limits. It's much likely that this is either a malignant process within the left chest/lower space. Also possible that we are dealing with a left lower lobe pneumonia with parapneumonic effusion which is somewhat loculated. On the right, the patient has a malignant pleural effusion with metastatic breast cancer with an underlying malignant mesothelioma. His white cell count remains elevated at 20.0. On 10/04/2016, continues to have intermittent episodes of left-sided pleuritic chest wall pain, pain is controlled with narcotics, chest x-ray and CT of the chest showed a relatively small left pleural effusion, has recommended ultrasound, and I would consider thoracentesis if that effusion is not loculated , and large enough to be safely drained. That may relieve some of his pain, plus we could potentially get a cytology diagnosis. Labs were all reviewed, WBC count is improving down to 14.9. The rest of the labs are unremarkable. The patient is seen again today 10/05/2016 in follow-up on the regular medical floor. He is awake and alert in no acute distress. He does have a small left- sided pleural effusion and an ultrasound revealed a small complex pleural effusion measuring 3.1 cm and noted internal septations. His pain is fairly well controlled. He is maintaining good O2 saturations in the upper 90s on 3 L/ m per nasal cannula. Blood and sputum cultures reveal no growth. Count is recovering. The patient is seen again today 10/06/2016 in follow-up on the oncology unit. He is awake and alert in no acute distress. His daughter is at the bedside. He denies any worsening shortness of breath. He does have a loose nonproductive cough that he has trouble clearing at times. His left-sided chest pain is subsiding. He is maintained on bronchodilators, Zosyn and Levaquin. He is afebrile. He is maintaining good O2 saturations in the high 90s on 3 L/m per nasal cannula. The patient is seen again today 10/07/2016 in follow-up. He is awake and alert in no acute distress. The plan is for discharge home to hospice today. His daughter states they do have oxygen set up and a hospital bed. Currently he is doing well from the pulmonary standpoint. He denies any worsening shortness of breath, cough or congestion. Objective - Vital Signs Vital signs: Vital Signs Temp 97.5 F L 10/07/16 07:00 Pulse 96 10/07/16 09:19 Resp 16 10/07/16 07:00 BP 140/75 10/07/16 07:00 Pulse Ox 99 10/07/16 09:10 Intake & Output 10/06/16 10/07/16 10/07/16 18:59 06:59 18:59 Intake Total 40 50 Output Total 125 Balance -85 50 Intake: IV 40 .9@20 40 Intake, IV Titration 50 Amount Piperacillin-Tazobactam 3 50 .375 gm In Dextrose/Water 1 50ml.bag @ 12.5 mls/hr IVPB Q8HR [facility] Rx#: [id number] Output: Urine 125 Other: Voiding Method Urinal Bedside Commode Urinal # Voids 3 # Bowel Movements 1 - Exam The patient appeared well nourished and normally developed. Vital signs as documented. Head exam is unremarkable. No scleral icterus or corneal arcus noted. Neck is without jugular venous distension, thyromegaly, or carotid bruits. Carotid upstrokes are brisk bilaterally. Breath sounds are diminished in lung bases bilaterally. No wheezes. No rhonchi. No crackles.. Cardiac exam reveals the PMI to be normally sized and situated. Rhythm is regular. First and second heart sounds normal. No murmurs, rubs or gallops. Abdominal exam reveals normal bowel sounds, no masses, no organomegaly and no aortic enlargement. Extremities are nonedematous and both femoral and pedal pulses are normal. - Labs CBC & Chem 7: 10/07/16 07:40 10/07/16 07:40 Labs: Abnormal Lab Results - Last 24 Hours (Table) 10/07/16 10/07/16 Range/Units 07:40 07:40 WBC 12.0 H (3.8-10.6) k/uL RBC 4.23 L (4.30-5.90) m/uL Hgb 10.4 L (13.0-17.5) gm/dL Hct 37.0 L (39.0-53.0) % MCH 24.5 L (25.0-35.0) pg MCHC 28.1 L (31.0-37.0) g/dL RDW 16.1 H (11.5-15.5) % Plt Count 583 H (150-450) k/uL Neutrophils # 8.9 H (1.3-7.7) k/uL Carbon Dioxide 31 H (22-30) mmol/L Creatinine 0.62 L (0.66-1.25) mg/dL Assessment and Plan Plan: 1 acute pleuritic left-sided chest pain. No evidence of pulmonary embolism. There is development of a new left-sided pleural effusion that was not present on a PET scan that was done and August 2016. This is a new findings. Nevertheless, going back to the PET scan, there was some increased metabolic activity along the pleural surface although the activity and optic was quite low. This could be potentially a pneumonia with parapneumonic effusion. Malignant pleural effusion cannot be completely excluded. 2 malignant pleural effusion with thoracoscopic lung biopsy indicating metastatic breast and possibly mesothelioma 3 breast cancer 4 leukocytosis, improving currently at 12.9. 5 hyperlipidemia 6 osteoarthritis 7 BPH 8 nephrolithiasis Plan: The patient was seen and evaluated by Dr. Mendoza. The patient is being discharged home to hospice today. No further pulmonary recommendations.
--- NOTE | 2016-10-08 07:33 | DS ---
DATE OF ADMISSION: 10/02/2016 DATE OF DISCHARGE: 10/07/2016 Patient is an 81-year-old admitted with pleural effusion. Patient has bilateral pleural effusions. Patient has left-sided pleural effusion initially thought to be infectious, although his pleural effusion continued to get worse and because of which we ( ). Patient was found to have malignant cell suspicious for mesothelioma as well as breast cancer suspicion. Patient has known history of breast cancer. Oncology had extensive discussion with the family and after extensive discussion with the family and oncology. Family decided on home with hospice and patient will be discharged today. Patient was seen and examined on the day of discharge. Vitals are stable. Patient is in mild respiratory distress. FINAL DIAGNOSES: 1. Left-sided pleural effusion, most probably malignant rather than parapneumonic. 2. Right-sided pleural effusion. Malignant pleural effusion in the past and patient had VATS procedure in the past. 3. History of breast cancer and possible mesothelioma now and active breast cancer now. 4. Gastroesophageal reflux disease. 5. Hyperlipidemia. 6. Degenerative joint disease. 7. Sepsis. Possibility of sepsis from pneumonia, although suspicion is low now. Most probably patient has malignant pleural effusion. 8. Mild to moderate protein calorie malnutrition. Patient will be discharged today. Please refer to my depart summary for details of discharge medication. Patient will be discharged home with home hospice. Activity as tolerated. Diet as tolerated. I spent greater than 35 minutes in total discharge process.
== END 2016-10-07 17:05 | disposition hospice, home (50) | DRG 180 ==
LOC: EC 02:04 → 5MS5E 03:50 → 5ONC 10-05 21:54
PROVIDERS: ADMIT Hospitalist; ATTEND Hospitalist
DX: C45.0 Mesothelioma of pleura (principal); A41.9 Sepsis, unspecified organism; J18.9 Pneumonia, unspecified organism; J91.0 Malignant pleural effusion; E44.0 Moderate protein-calorie malnutrition; C78.2 Secondary malignant neoplasm of pleura; E87.1 Hypo-osmolality and hyponatremia; J98.11 Atelectasis; C50.929 Malignant neoplasm of unspecified site of unspecified male breast; D63.8 Anemia in other chronic diseases classified elsewhere; C45.7 Mesothelioma of other sites; E78.5 Hyperlipidemia, unspecified; H91.90 Unspecified hearing loss, unspecified ear; I51.7 Cardiomegaly; J45.20 Mild intermittent asthma, uncomplicated; K21.9 Gastro-esophageal reflux disease without esophagitis; M19.90 Unspecified osteoarthritis, unspecified site; N20.0 Calculus of kidney; N40.0 Benign prostatic hyperplasia without lower urinary tract symptoms; R09.02 Hypoxemia; R74.8 Abnormal levels of other serum enzymes; R09.1 Pleurisy; R73.9 Hyperglycemia, unspecified; Z17.0 Estrogen receptor positive status [ER+]; Z85.3 Personal history of malignant neoplasm of breast; Z87.891 Personal history of nicotine dependence; Z79.899 Other long term (current) drug therapy
CPT/HCPCS: 36415; 71010; 71020; 71275; 76604; 80048; 80053; 82550; 82553; 83735; 83880; 84484; 85025; 85610; 85730; 87040; 87070; 87205; 87502; 93005; 94640; 94644; 94760; 96365; 99291